=== PATIENT | male | born 1950 | race Caucasian/White ===

== ENCOUNTER 2016-11-30 13:30 | Emergency (ER) | payer MEDICARE, OTHER ==
[~2016-11-30] VITALS: Ht 185.4 cm; Wt 86.0 kg
[2016-11-30 13:33] VITALS: Ht 185.4 cm; Wt 86.0 kg
--- NOTE | 2016-11-30 14:05 | ERD ---
ER Documentation Chief Complaint Date/Time DATE: 11/30/16 TIME: 14:03 Chief Complaint REQUEST PSYCH EVAL. DENIES ANY SI OR HI. HPI This is a 66-year-old male who presents to the emergency room for evaluation of depression. The patient states that he is not homicidal, not suicidal. This patient came to the emergency room because he would like to establish care with a psychiatrist. The patient is denying any drug use at this time, he states that he used to drink and was drinking to supplement his depression and states that his last drink was over 2 weeks ago. ROS All systems reviewed and are negative except as per history of present illness. Allergies Allergies: Coded Allergies: No Known Allergy (Unverified , 11/30/16) Physical Exam Vitals Vital Signs Date Time Temp Pulse Resp B/P Pulse Ox O2 Delivery O2 Flow Rate FiO2 11/30/16 13:33 97.9 60 19 119/79 99 Physical Exam Const: No acute distress Head: Atraumatic Eyes: Normal Conjunctiva ENT: Normal External Ears, Nose and Mouth. Neck: Full range of motion..~ No meningismus. Resp: Clear to auscultation bilaterally Cardio: Regular rate and rhythm, no murmurs Abd: Soft, non tender, non distended. Normal bowel sounds Skin: No petechiae or rashes Back: No midline or flank tenderness Ext: No cyanosis, or edema Neur: Awake and alert Psych: Normal Mood and Affect Procedures/MDM This 66-year-old male presents to the emergency room for a referral for psychiatry. He is not homicidal, not suicidal, denies any homicidal suicidal ideation. Is a pleasant affect and is lonely to the person place and time. I advised him that he can call his insurance company and get a referral through his insurance. The patient verbalized understanding. He was also given referrals for outpatient psychiatric center and alcohol detoxification center. The patient states he is comfortable with the plan of care. I advised him return immediately to the ER if he develops any homicidal or suicidal ideation. The patient is adamantly denying that he is having any at this time and states he will return if he needs further guidance. Departure Diagnosis: Primary Impression: Psychological disorder Additional Impression: Depression Condition: Stable DELIA DORSEY DO November 30, 2016 14:05
[2016-11-30] MEDS ORDERED: GABA400C14 PO (14:13)
[2016-11-30] MEDS ORDERED: FAMO20TA18 PO (14:13)
[2016-11-30] MEDS ORDERED: TREX50 PO (14:13)
[2016-11-30] MEDS ORDERED: PANT40TA4 PO (14:14)
[2016-11-30] MEDS ORDERED: LIT300 PO (14:14)
[2016-11-30] MEDS ORDERED: TERA2CAP3 PO (14:14)
[2016-11-30] MEDS ORDERED: ALBU18HF INHALATION (14:15)
[2016-11-30] MEDS ORDERED: IBUP800T25 PO (14:15)
[2016-11-30] MEDS ORDERED: LATA2.5D2 BOTH EYES (14:15)
[2016-11-30 14:29] VITALS: BP 121/82; PULSE 75; RESP 19; TEMP 97.9
== END 2016-11-30 14:29 | disposition home or self-care (01) ==
LOC: E/R 13:30
DX: F99 Mental disorder, not otherwise specified (principal)
CPT/HCPCS: 99284

== ENCOUNTER 2017-07-04 03:57 | Inpatient (IN) | payer MEDICARE, OTHER ==
[~2017-07-04] VITALS: Ht 182.9 cm; Wt 85.0 kg
[~2017-07-04 03:57] MED LIST: ALBU18HF INHALATION; FAMO20TA18 PO; GABA400C14 PO; IBUP800T25 PO; LATA2.5D2 BOTH EYES; LIT300 PO; PANT40TA4 PO; TERA2CAP3 PO; TREX50 PO
--- NOTE | 2017-07-04 04:16 | ERD ---
ER Documentation Chief Complaint Chief Complaint pt reports BLE pain HPI 67-year-old male brought in by rescue for bilateral lower extremity pain. Patient states "I am cold". Patient does not answer further questions ROS All systems reviewed and are negative except as per history of present illness. Medications Home Meds Reported Medications Albuterol Sulfate* (Ventolin HFA*) 18 Gm Hfa.aer.ad, 2 PUFF INHALATION Q4H, #1 INHALER 11/30/16 Latanoprost (Latanoprost) 2.5 Ml Drops, 1 DROP BOTH EYES QHS, #1 BOTTLE 11/30/16 Ibuprofen* (Ibuprofen*) 800 Mg Tablet, 800 MG PO Q8 Y for PAIN, TAB 11/30/16 [place] Carbonate* ([place]*) 300 Mg Cap, 900 MG PO QHS, CAP 11/30/16 Pantoprazole* (Pantoprazole*) 40 Mg Tablet.dr, 40 MG PO AC BREAKFAST, TAB 11/30/16 Terazosin Hcl* (Terazosin Hcl*) 2 Mg Capsule, 2 MG PO HS, CAP 11/30/16 Famotidine* (Famotidine*) 20 Mg Tablet, 20 MG PO BID, #60 TAB 11/30/16 Naltrexone Hcl (Trexan) 50 Mg Tab, 50 MG PO DAILY, TAB 11/30/16 Gabapentin* (Gabapentin*) 400 Mg Capsule, 400 MG PO TID, #90 CAP 11/30/16 Allergies Allergies: Coded Allergies: No Known Allergy (Unverified , 11/30/16) PMhx/Soc Hx Miscellaneous Medical Probl: Yes (blood clots) Hx Alcohol Use: Yes (socially) Hx Substance Use: No Hx Tobacco Use: Yes Smoking Status: Current every day smoker Physical Exam Vitals Vital Signs Date Time Temp Pulse Resp B/P Pulse Ox O2 Delivery O2 Flow Rate FiO2 07/04/17 04:04 97.1 81 16 128/77 96 Physical Exam Const: [] Head: Atraumatic Eyes: Normal Conjunctiva ENT: Normal External Ears, Nose and Mouth. Neck: Full range of motion..~ No meningismus. Resp: Clear to auscultation bilaterally Cardio: Regular rate and rhythm, no murmurs Abd: Soft, non tender, non distended. Normal bowel sounds Skin: No petechiae or rashes Back: No midline or flank tenderness Ext: No cyanosis, or edema Neur: Awake and alert Psych: Normal Mood and Affect Procedures/MDM Medical decision-making: Patient comes in with myalgias. At this point is clinically stable for outpatient management. Patient will be discharged home. Departure Diagnosis: Primary Impression: Myalgia Condition: Stable ZACHARY KMI Jul 04, 2017 04:16
[2017-07-04] MEDS ORDERED: IBUP-1542 PO (04:17)
[2017-07-04] MEDS ORDERED: VANCOMYCIN 1 GM (PMX) 250 ML IVPB ONE (13:30)
[2017-07-04] MEDS ORDERED: SOD CHLORIDE 0.9% 1,000 ML IV ONE (13:30)
[2017-07-04] MEDS ORDERED: IBUPROFEN 600 MG TAB PO ONE (13:30)
[2017-07-04 13:59] LABS: BASOPHILS % 0.4 % (0.0-2.0); EOSINOPHILS # 0.5 10^3/ul (0.0-0.5); HEMATOCRIT 31.2 % (42.0-52.0); HEMOGLOBIN 9.7 g/dl (14.0-18.0); LYMPHOCYTES # 0.8 10^3/ul (0.8-2.9); LYMPHOCYTES % 11.4 % (15.0-51.0); MEAN CORPUSCULAR HGB CONC 31.1 g/dl (32.0-37.0); MEAN CORPUSCULAR VOLUME 90.2 fl (82.0-101.0); MEAN PLATELET VOLUME 9.1 fl (7.4-10.4); MONOCYTE # 0.9 10^3/ul (0.3-0.9); MONOCYTES % 13.1 % (0.0-11.0); NEUTROPHIL # 4.5 10^3/ul (1.6-7.5); NEUTROPHILS % 66.5 % (39.0-77.0); PLATELET COUNT 320 10^3/UL (140-415); RED BLOOD COUNT 3.46 10^6/ul (4.70-6.10); RED CELL DISTRIBUTION WIDTH 14.6 % (11.5-14.5); WHITE BLOOD COUNT 6.8 10^3/ul (4.8-10.8)
[2017-07-04 14:49] LABS: CALCIUM 8.7 mg/dl (8.4-10.2); CREATININE 0.63 mg/dl (0.61-1.24); POTASSIUM 3.9 mmol/L (3.5-5.1)
[2017-07-04] MEDS ORDERED: DABI150C PO (15:06)
[2017-07-04] MEDS ORDERED: CLOT15CR6 TOP (15:07)
[2017-07-04] MEDS ORDERED: ACETAMINOPHEN 325 MG TAB PO PRN (18:00)
[2017-07-04] MEDS ORDERED: ONDANSETRON 4 MG INJ IV PRN (18:00)
--- NOTE | 2017-07-04 18:20 | QN ---
Documentation Comment I was asked to evaluate this patient by social work after he saw him. States that he was going to be admitted to [facility] before he signed out AMA for his worsening lower extremity cellulitis. States that he has had chills with no fevers but has had increasing leg swelling pain and redness. Spend more and more difficult to walk. He is homeless. On physical exam the patient does have bilateral lower extremity erythema, edema and caloric worse on the left than the right. Has multiple areas of ulceration as well. Bilateral foot pulses are palpable. Heart and lung exam is within normal limits. Patient is almost does not have follow-up. Does need antibiotics. Ordered vancomycin, liter of fluid and blood cultures. Is going to be admitted to the panel Dr. Rodriguez for treatment of worsening bilateral lower extremity cellulitis that is circumferential. No evidence of sepsis. KERI FARFAN DO Jul 04, 2017 18:20
[2017-07-04 22:48] VITALS: TEMP 98.2
[2017-07-05 00:16] VITALS: Ht 182.9 cm; Wt 85.0 kg
[2017-07-05 00:17] VITALS: BP 117/69; PULSE 87; RESP 18
[2017-07-05] MEDS ORDERED: ONDANSETRON 4 MG INJ IV PRN (01:30)
[2017-07-05] MEDS ORDERED: NACL 0.9% 3 ML SYG IV SCH (01:30)
[2017-07-05] MEDS ORDERED: ACETAMINOPHEN 325 MG TAB PO PRN (01:30)
[2017-07-05] MEDS: LORAZEPAM 2 MG INJ IV PRN ×4 (01:58→20:56)
[2017-07-05] MEDS: HYDROCODONE/APAP (5/325) TAB PO PRN ×4 (01:58→20:57)
[2017-07-05] MEDS: VANCOMYCIN 1.25 GM in DEXTROSE 5% 250 ML IVPB SCH ×2 (02:37→15:09)
[2017-07-05 08:00] VITALS: BP 133/67; PULSE 89; RESP 20
[2017-07-05] MEDS: CEFEPIME 1GM/50 ML (PMX) 50 ML IVPB SCH ×2 (09:00→20:56)
[2017-07-05] MEDS ORDERED: VANCOMYCIN IV PER PHARMACY XX SCH (09:00)
--- NOTE | 2017-07-05 09:15 | RADRPT ---
PROCEDURE: Ultrasound of the bilateral lower extremity venous system. CLINICAL INDICATION: Bilateral leg pain and swelling, deep venous thrombosis TECHNIQUE: [place] scale with and without compression, color doppler, spectral doppler of the venous system of the bilateral lower extremities was performed. Venous augmentation maneuvers were utilized . COMPARISON: No prior studies are available for comparison. FINDINGS: Right: Common femoral vein: Age indeterminate thrombus is present Femoral vein: Age indeterminate thrombus is present throughout Popliteal vein: Patent. Calf veins: Not visualized by the pipe straightener. A popliteal cyst measuring 1.4 x 3.0 x 4.7 cm. Left: Common femoral vein: Chronic-appearing thrombus is present. Femoral vein: Chronic-appearing thrombus is present proximally. Popliteal vein: Chronic-appearing thrombus is present. Calf veins: Not visualized by the pipe straightener. No soft tissue abnormalities are identified. IMPRESSION: Bilateral lower extremity deep venous thrombus. RPTAT: AADD .David Martinez MD, MD Date Time Electronically viewed and signed by .David Martinez MD, on 07/05/2017 09:15 .B/
[2017-07-05] MEDS: FAMOTIDINE 20 MG INJ IV SCH ×2 (09:41→20:56)
[2017-07-05] MEDS: DABIGATRAN 150 MG CAP PO SCH ×2 (09:42→21:22)
--- NOTE | 2017-07-05 10:04 | HP ---
Date/Time of Note Date/Time of Note DATE: 07/05/17 TIME: 09:51 Assessment/Plan VTE Prophylaxis VTE Prophylaxis Intervention: other (Pradaxa) Lines/Catheters Urinary Cath still in place: No Assessment/Plan Assessment/Plan 1. Chronic bilateral lower extremity cellulitis -IV antibiotic -ID consult -Wound care consult 2. Bilateral DVT, patient diagnosed 3 weeks ago -will order bilateral Doppler venous study for confirmation. Will then continue his Pradaxa -I believe patient benefits from placement of IVC filter, especially given the fact that he seems to be noncompliant with his medications which puts him at increased risk for PE. Patient is willing for IVC filter placement, patient has been ordered 3. Normocytic anemia -Will check FOBT and iron studies. If the patient is to be placed on a blood thinner, it is important to rule out GI bleed. GI consult has been placed 4. Homelessness -Patient would like SNF placement -housekeeping manager and social work consult will be placed HPI/ROS Admit Date/Time Admit Date/Time Jul 04, 2017 at 17:43 Hx of Present Illness This is a 67-year-old male with history of bilateral DVT, chronic bilateral lower extremity cellulitis who presented to the ER complaining of worsening of his cellulitis as well as pain on both of his legs. He initially went to [facility] but left AMA and he presented here. He said he was diagnosed with bilateral lower extremity DVT 3 weeks ago. His home medications include Pradaxa. He told me that he has been taking Lovenox for his DVT but corrected himself saying that he was only getting Lovenox at the hospital when he was initially diagnosed but now he said he has been taking "his pills" regularly. Patient appears to be homeless. He said he has been living with friends, but he does not want go back to live with them because they are meth users. Patient also complains of generalized weakness. He has also been drinking regularly. He denied tremors. PMH/Family/Social Social History Smoking Status: Unknown if ever smoked Exam/Review of Systems Vital Signs Vitals Vital Signs Date Time Temp Pulse Resp B/P Pulse Ox O2 Delivery O2 Flow Rate FiO2 07/05/17 08:00 98.4 89 20 133/67 98 Room Air Exam Constitutional: alert, oriented, other (Appears disheveled) Head: atraumatic, normocephalic Eyes: EOMI, PERRL Respiratory: clear to auscultation, normal air movement Cardiovascular: nl pulses, regular rate and rhythm Gastrointestinal: non-tender, soft Extremities: other (Bilateral lower extremity cellulitis, edema) Labs Result Diagram: 07/04/17 1325 07/04/17 1325 Medications Medications Current Medications Ondansetron HCl (Zofran Inj) 4 mg Q6H PRN IV NAUSEA AND/OR VOMITING; Start at 01:30 Acetaminophen (Tylenol Tab) 650 mg Q6H PRN PO PAIN LEVEL 1-3 OR FEVER; Start 07/05/17 at 01:30 Morphine Sulfate (morphine) 2 mg Q4H PRN IV SEVERE PAIN LEVEL 7-10; Start at 01:30 Famotidine (Pepcid Iv) 20 mg Q12 IV Last administered on 07/05/17 09:41; Admin Dose 20 MG; Start 07/05/17 at 09:00 Dabigatran 150 mg 150 mg BID PO Last administered on 07/05/17 09:42; Admin Dose 150 MG; Start 07/05/17 at 09:00 Multivitamins/ Thiamine HCl/ Folic Acid/Sodium Chloride (Mvi Adult/ Vitamin B1/ Folic Acid/NS) 1,011.2 ml @ 125 mls/ hr DAILY@09 IVPB ; Start 07/08/17 at 09: 00 Lorazepam (Ativan) 1 mg Q3H PRN IV anxiety; Start 07/05/17 at 01:30 Lorazepam 2 mg 2 mg Q1H PRN IV withdrawal Last administered on 07/05/17 09:42 ; Admin Dose 2 MG; Start 07/05/17 at 01:30 Cefepime HCl (Maxipime 1gm/50 ml (Pmx)) 50 ml @ 100 mls/hr Q12 IVPB ; Start at 09:00 Acetaminophen/ Hydrocodone Bitart 1 tab 1 tab Q4H PRN PO pain Last administered on 07/05/17 09:42; Admin Dose 1 TAB; Start 07/05/17 at 01:30 Vancomycin HCl/ Dextrose (Vancocin/D5W) 250 ml @ 83.333 mls/ hr Q12H IVPB Last administered on 07/05/17 02:37; Admin Dose 83.333 MLS/HR; Start at 02:00 Miscellaneous Information (*Rx Drug Level Order Reminder*) VANCOMYCIN TROUGH ON 06/17... ONCE ONCE XX ; Start 07/06/17 at 13:00; Stop 07/06/17 at 13:01 ZACHARY YEE MD Jul 05, 2017 10:03
[2017-07-05] MEDS: morphine 2 MG INJ IV PRN ×2 (10:52→23:33)
[2017-07-05 11:48] LABS: ABNORMAL IP MESSAGE 1; BASOPHILS % 0.6 % (0.0-2.0); EOSINOPHILS # 0.7 10^3/ul (0.0-0.5); EOSINOPHILS % 10.3 % (0.0-7.0); HEMATOCRIT 30.7 % (42.0-52.0); HEMOGLOBIN 9.6 g/dl (14.0-18.0); LYMPHOCYTES # 0.6 10^3/ul (0.8-2.9); LYMPHOCYTES % 8.2 % (15.0-51.0); MEAN CORPUSCULAR HEMOGLOBIN 28.9 pg (29.0-33.0); MEAN CORPUSCULAR HGB CONC 31.3 g/dl (32.0-37.0); MEAN CORPUSCULAR VOLUME 92.5 fl (82.0-101.0); MEAN PLATELET VOLUME 8.9 fl (7.4-10.4); MONOCYTE # 0.9 10^3/ul (0.3-0.9); MONOCYTES % 12.7 % (0.0-11.0); NEUTROPHIL # 4.8 10^3/ul (1.6-7.5); NEUTROPHILS % 67.8 % (39.0-77.0); PLATELET COUNT 291 10^3/UL (140-415); POSITIVE DIFF @See below; RED BLOOD COUNT 3.32 10^6/ul (4.70-6.10); RED CELL DISTRIBUTION WIDTH 14.6 % (11.5-14.5); WHITE BLOOD COUNT 7.1 10^3/ul (4.8-10.8)
[2017-07-05 12:16] LABS: ALBUMIN 2.7 g/dl (3.3-4.9); ALBUMIN/GLOBULIN RATIO 0.81; BILIRUBIN,INDIRECT 0.1 mg/dl (0-1.1); BILIRUBIN,TOTAL 0.1 mg/dl (0.2-1.3); CALCIUM 8.4 mg/dl (8.4-10.2); CREATININE 0.63 mg/dl (0.61-1.24); POTASSIUM 4.3 mmol/L (3.5-5.1)
[2017-07-05 12:20] LABS: INR 1.07; PT RATIO 1.1
[2017-07-05 12:22] LABS: PARTIAL THROMBOPLASTIN TIME 29.4 Sec (25.0-35.0)
[2017-07-05] MEDS ORDERED: MIDAZOLAM 1 MG/ML 2 ML INJ ONE (13:18)
[2017-07-05] MEDS ORDERED: LIDOCAINE 1% (MDV) 20 ML INJ ONE (13:18)
[2017-07-05] MEDS ORDERED: morphine 10 MG INJ ONE (13:18)
[2017-07-05] MEDS ORDERED: IODIXANOL LOCM 100 ML BTL ONE (13:18)
--- NOTE | 2017-07-05 15:15 | PN ---
Date/Time of Note Date/Time of Note DATE: 07/05/17 TIME: 15:06 Assessment/Plan VTE Prophylaxis VTE Prophylaxis Intervention: other (pradaxa) Lines/Catheters Urinary Cath still in place: No Assessment/Plan Chief Complaint/Hosp Course 1. Bilateral lower extremity cellulitis Status: Chronic Remarks: Needs proper wound care. -IV antibiotic -Blood cultures, ID consult -Elevate both legs, Wound care consult 2. Bilateral DVT Status:Acute. Remarks: Stable -Status post IVC filter -On anticoagulation with Pradaxa-Vascular consult requested 3. Anemia of chronic illness. Status:Chronic. Remarks: Stable -Monitor.No acute bleed to address this time. 4. Homelessness Status:Chronic. Remarks: Patient now requests assistance. His wound care need may qualify him for SNF-But will be challenging with non-compliance issues and homelessness status. -human resources training manager and health and social care teacher to address this issue. 5.Alcohol abuse -Cessation advised. Patient was seen in collaboration with . Problems: Subjective 24 Hr Interval Summary Free Text/Dictation No acute distress. Exam/Review of Systems Vital Signs Vitals Vital Signs Date Time Temp Pulse Resp B/P Pulse Ox O2 Delivery O2 Flow Rate FiO2 07/05/17 08:00 98.4 89 20 133/67 98 Room Air Exam General: Disheveled male, not in any acute distress . HEENT: Normocephalic, Atraumatic, No laceration or hematoma; Eyes: PEERL, Conjunctiva clear, Anicteric sclera Neck: Supple without any lymphadenopathy, nontender, no JVD, no carotid bruits, trachea midline, no thyromegaly Cardiac: S1, S2 auscultated, regular rhythm and rate, no mumurs or gallop Pulmonary: Normal respiratory effort. Chest clear to auscultation bilaterally, no adventitious breath sounds GI: Abdomen normal to inspection. Soft, non- distended, no masses, no rebound tenderness or guarding. Bowel sounds active on all four quadrants Genitourinary: Deferred Extremities: Chronic lymphedema/hyperpigmentation/venosus stasis changes to dann.LEs. No cyanosis, clubbing, or edema. Pulses [2+] bilaterally. Full ROM on all four extremities. No focal weakness appreciated. Neurologic: Alert to person, place, time, and situation. Anxious. Skin: b/l LE chronic venous stasis changes/wounds/hyperpigmentation. Results Result Diagram: 07/05/17 1125 07/05/17 1125 Results 24 hrs Laboratory Tests Test 07/05/17 11:25 White Blood Count 7.1 Red Blood Count 3.32 L Hemoglobin 9.6 L Hematocrit 30.7 L Mean Corpuscular Volume 92.5 Mean Corpuscular Hemoglobin 28.9 L Mean Corpuscular Hemoglobin Concent 31.3 L Red Cell Distribution Width 14.6 H Platelet Count 291 Mean Platelet Volume 8.9 Neutrophils % 67.8 Lymphocytes % 8.2 L Monocytes % 12.7 H Eosinophils % 10.3 H Basophils % 0.6 Nucleated Red Blood Cells % 0.0 Neutrophils # 4.8 Lymphocytes # 0.6 L Monocytes # 0.9 Eosinophils # 0.7 H Basophils # 0.0 Nucleated Red Blood Cells # 0.0 Prothrombin Time 14.0 Prothrombin Time Ratio 1.1 INR International Normalized Ratio 1.07 Activated Partial Thromboplast Time 29.4 Sodium Level 143 Potassium Level 4.3 Chloride Level 109 Carbon Dioxide Level 28 Anion Gap 10 Blood Urea Nitrogen 13 Creatinine 0.63 Glucose Level 100 Calcium Level 8.4 Ferritin 105.0 Total Bilirubin 0.1 L Direct Bilirubin 0.00 Indirect Bilirubin 0.1 Aspartate Amino Transf (AST/SGOT) 18 Alanine Aminotransferase (ALT/SGPT) 27 Alkaline Phosphatase 50 Total Protein 6.0 L Albumin 2.7 L Globulin 3.30 H Albumin/Globulin Ratio 0.81 Medications Medications Current Medications Ondansetron HCl (Zofran Inj) 4 mg Q6H PRN IV NAUSEA AND/OR VOMITING; Start at 01:30 Acetaminophen (Tylenol Tab) 650 mg Q6H PRN PO PAIN LEVEL 1-3 OR FEVER; Start 07/05/17 at 01:30 Morphine Sulfate (morphine) 2 mg Q4H PRN IV SEVERE PAIN LEVEL 7-10 Last administered on 07/05/17 10:52; Admin Dose 2 MG; Start 07/05/17 at 01:30 Famotidine (Pepcid Iv) 20 mg Q12 IV Last administered on 07/05/17 09:41; Admin Dose 20 MG; Start 07/05/17 at 09:00 Dabigatran 150 mg 150 mg BID PO Last administered on 07/05/17 09:42; Admin Dose 150 MG; Start 07/05/17 at 09:00 Multivitamins/ Thiamine HCl/ Folic Acid/Sodium Chloride (Mvi Adult/ Vitamin B1/ Folic Acid/NS) 1,011.2 ml @ 125 mls/ hr DAILY@09 IVPB ; Start 07/08/17 at 09: 00 Lorazepam (Ativan) 1 mg Q3H PRN IV anxiety; Start 07/05/17 at 01:30 Lorazepam 2 mg 2 mg Q1H PRN IV withdrawal Last administered on 07/05/17 09:42 ; Admin Dose 2 MG; Start 07/05/17 at 01:30 Cefepime HCl (Maxipime 1gm/50 ml (Pmx)) 50 ml @ 100 mls/hr Q12 IVPB Last administered on 07/05/17 09:00; Admin Dose 100 MLS/HR; Start 07/05/17 at 09: 00 Acetaminophen/ Hydrocodone Bitart 1 tab 1 tab Q4H PRN PO pain Last administered on 07/05/17 09:42; Admin Dose 1 TAB; Start 07/05/17 at 01:30 Vancomycin HCl/ Dextrose (Vancocin/D5W) 250 ml @ 83.333 mls/ hr Q12H IVPB Last administered on 07/05/17 02:37; Admin Dose 83.333 MLS/HR; Start at 02:00 Miscellaneous Information (*Rx Drug Level Order Reminder*) VANCOMYCIN TROUGH ON 06/17... ONCE ONCE XX ; Start 07/06/17 at 13:00; Stop 07/06/17 at 13:01 Betamethasone/ Clotrimazole (Lotrisone Cr) 1 applic BID TOP ; Start 07/05/17 at 21:00; Status UNV Ibuprofen (Motrin) 600 mg Q6 PO ; Start 07/05/17 at 18:00; Status UNV APPLE CHEUNG NP Jul 05, 2017 15:15 APPLE CHEUNG NP Jul 05, 2017 15:15
--- NOTE | 2017-07-05 17:21 | RADRPT ---
PROCEDURE: INFERIOR VENACAVOGRAM CLINICAL INDICATION: Bilateral lower extremity deep venous thrombosis. TECHNIQUE: The procedure, risks, benefits, complications and alternatives were explained to the patient. Risks including bleeding and infection were explained. In addition, risks regarding the inferior vena cava filter including filter migration, inferior vena cava the perforation, and caval thrombosis were ex plained. The patient understood and was willing to proceed. Consent was obtained. A procedural pause was performed. The patient's name, date of , and procedure to be performed were verified. The right internal jugular vein was interrogated with ultrasound. It demonstrates normal compressibi lity without evidence for venous thrombosis. The right neck and chest region was prepped and draped. One percent lidocaine was used as local anesthesia. A 21 gauge single wall puncture needle was inse rted into the right internal jugular vein without difficulty. A 0.018 inch guidewire was then advanc ed through the needle into the right internal jugular vein, and the superior vena cava with fluorosc opic guidance. A 5 Serbian sheath was then exchanged for the needle. The original guidewire was remov ed and a 0.035 inch wire was then advanced into the right internal jugular vein, then the superior v moises cava, and the right atrium, and the inferior vena cava with fluoroscopic guidance. At this point , it was noted under fluoroscopy that there was an inferior vena cava filter present in the upper ab domen. The guidewire could not be advanced past the inferior vena cava filter indicating there may be caval thrombosis. Therefore, due to this finding and the presence of bilateral deep venous thromb osis, it was decided to perform an inferior venacavagram. A 6-Serbian dilator from the inferior vena cava filter set was advanced over the guide wire is such that the tip was at the level of the upper inferior vena cava. An inferior venacavogram was performed through the dilator. Multiple digital shefali ges were obtained. The dilator was then removed and pressure was held for approximately 10 minutes with good hemostasis . The patient tolerated the procedure well. COMPARISON: Bilateral lower extremity venous Doppler dated 07/05/2017. FINDINGS: The inferior vena cava filter is noted to be tilted with the superior tip at the level of the right renal vein. Contrast injection demonstrates thrombosis of the inferior vena cava inferior to the inferior vena c madi filter. The bilateral renal veins are patent. The inferior vena cava superior to the renal veins is widely p atent. Fluoroscopy time is 0.3 minutes and 37 images were obtained. IMPRESSION: 1. An inferior vena cava filter is present in the patient prior to the procedure been performed. 2. The existing IVC filter is tilted with the superior tip towards the right renal vein. 3. Thrombosis of the inferior vena cava inferior to the existing IVC filter. 4. There is no thrombus superior to the existing inferior vena cava filter. Therefore a new inferio r vena cava filter was not placed. RPTAT: QQ .Ajit Cullen MD, MD Date Time Electronically viewed and signed by .Ajit Cullen MD, on 07/05/2017 17:21 .R/
[2017-07-05] MEDS: IBUPROFEN 600 MG TAB PO SCH ×2 (18:57→23:42)
[2017-07-05 19:30] VITALS: BP 110/68; PULSE 85; RESP 18
[2017-07-05] MEDS: BETAMETHASONE/CLOTRIMAZOLE 15 GM CR TOP SCH (20:56)
[2017-07-05] MEDS: MULTIVITAMINS 10 ML, THIAMINE 100 MG, FOLIC ACID 1 MG in SOD CHLORIDE 0.9% 1,000 ML IVPB SCH (21:42)
--- NOTE | 2017-07-05 23:27 | CONS ---
DATE OF ADMISSION: 07/05/2017 DATE OF CONSULTATION: 07/05/2017 INFECTIOUS DISEASE CONSULTATION REASON FOR CONSULTATION: Antibiotic management. HISTORY OF PRESENT ILLNESS: Romario Verdugo is a 67-year-old male who appears to be homeless, who com es in with bilateral DVTs and is being seen for antibiotic management. His problems include: 1. History of bilateral DVTs. 2. Chronic bilateral lower extremity cellulitis. He presented to the emergency room with worsening cellulitis of both legs as well as pain. He initi ally went to [facility], but left AMA. He was diagnosed with lower extremity deep venous thr ombosis 3 weeks ago and was placed on Pradaxa. He then said that he was taking Lovenox for his DVT, but he was only getting Lovenox in the Hospital when he was initially diagnosed. On admission, his white count was 6.8, H and H 9.7 and 31.2, platelet count 320,000. BUN and creatinine 15/0.63. Th e patient was started on vancomycin and cefepime and has just had an IVC filter placed. A vascular consultation was also requested. His white count today is 7.1. PAST MEDICAL AND SURGICAL HISTORY: None stated. FAMILY HISTORY: Noncontributory. SOCIAL HISTORY: Noncontributory. ALLERGIES: PENICILLIN, SULFA, FOODS. MEDICATIONS: Per chart. REVIEW OF SYSTEMS: As per HPI. PHYSICAL EXAMINATION: GENERAL: The patient is a disheveled male who is alert, responsive, in no acute distress. VITAL SIGNS: Stable. He is afebrile. SKIN: Without generalized rash. HEENT: Within normal limits. NECK: Supple. LYMPH NODES: None palpable. CHEST: Decreased breath sounds at the bases. HEART: Without murmur or gallop. ABDOMEN: Soft, nontender, without organosplenomegaly or masses. EXTREMITIES: Patient is an extremely swollen and red. He has bilateral lower extremity deep vein t hrombosis on his x-rays, but as far as his physical examination he is markedly erythematous with dann ateral lower extremity cellulitis and edema. RECTAL AND GENITAL: Deferred. NEUROLOGICAL: No focal neurological abnormalities. IMPRESSION AND PLAN: The patient is currently on multivitamin, has history of alcohol abuse. He is on vancomycin and cefepime. I will dictate my findings to the hospitalist. Dictated By: LONI CORTES MD, JD/CRYS Conf#: [id number] [employer]#: [id number]
[2017-07-06] MEDS: HYDROCODONE/APAP (5/325) TAB PO PRN ×4 (01:38→18:58)
[2017-07-06] MEDS: VANCOMYCIN 1.25 GM in DEXTROSE 5% 250 ML IVPB SCH ×2 (01:38→14:49)
[2017-07-06] MEDS: LORAZEPAM 2 MG INJ IV PRN ×3 (01:38→22:32)
[2017-07-06 02:30] VITALS: BP 122/64; PULSE 81; RESP 18
[2017-07-06] MEDS: IBUPROFEN 600 MG TAB PO SCH ×3 (06:00→19:00)
[2017-07-06 08:00] VITALS: BP 129/87; PULSE 86; RESP 20
[2017-07-06] MEDS: FAMOTIDINE 20 MG INJ IV SCH ×2 (09:13→21:48)
[2017-07-06] MEDS: DABIGATRAN 150 MG CAP PO SCH ×2 (09:13→21:48)
[2017-07-06] MEDS: CEFEPIME 1GM/50 ML (PMX) 50 ML IVPB SCH ×2 (09:14→21:48)
[2017-07-06] MEDS: MULTIVITAMINS 10 ML, THIAMINE 100 MG, FOLIC ACID 1 MG in SOD CHLORIDE 0.9% 1,000 ML IVPB SCH (09:15)
[2017-07-06] MEDS: BETAMETHASONE/CLOTRIMAZOLE 15 GM CR TOP SCH (10:11)
--- NOTE | 2017-07-06 12:15 | PN ---
Date/Time of Note Date/Time of Note DATE: 07/06/17 TIME: 12:12 Assessment/Plan VTE Prophylaxis VTE Prophylaxis Intervention: other (Pradaxa) Lines/Catheters Urinary Cath still in place: No Assessment/Plan Chief Complaint/Hosp Course 1. Bilateral lower extremity cellulitis Status: Chronic. Remarks: Needs proper wound care. -ID eval appreciated. Continue IV antibiotic and wound care -F/u Blood cultures -Elevate both legs 2. Bilateral DVT Status:Acute. Remarks:Stable -Status post IVC filter -On anticoagulation with Pradaxa- Consulted vascular remotely () and no further intervention indicated. Advised to continue Pradax 3. Anemia of chronic illness. Status:Chronic. Remarks:Stable -Monitor.No acute bleed to address this time. 4. Homelessness Status:Chronic. Remarks: Needs to address here as patient now requests assistance and the need for wound care may qualify him for a SNF- which will be challenging based on his non-compliance and homelessness. -Defer this issue to our manager practice and director social service 5.Alcohol abuse -Cessation advised. Patient was seen in collaboration with . Problems: Subjective 24 Hr Interval Summary Free Text/Dictation sitting up in chair.NAD Exam/Review of Systems Vital Signs Vitals Vital Signs Date Time Temp Pulse Resp B/P Pulse Ox O2 Delivery O2 Flow Rate FiO2 07/06/17 08:00 86 20 129/87 97 Room Air 07/05/17 08:00 98.4 Exam General: Well developed male, not in any acute distress . HEENT: Normocephalic, Atraumatic, No laceration or hematoma; Eyes: PEERL, Conjunctiva clear, Anicteric sclera Neck: Supple without any lymphadenopathy, nontender, no JVD, no carotid bruits, trachea midline, no thyromegaly Cardiac: S1, S2 auscultated, regular rhythm and rate, no mumurs or gallop Pulmonary: Normal respiratory effort. Chest clear to auscultation bilaterally, no adventitious breath sounds GI: Abdomen normal to inspection. Soft, non- distended, no masses, no rebound tenderness or guarding. Bowel sounds active on all four quadrants Genitourinary: Deferred Extremities: Chronic lymphedema/hyperpigmentation/venosus stasis changes to dann.LEs. No cyanosis, clubbing, or edema. Pulses [2+] bilaterally. Full ROM on all four extremities. No focal weakness appreciated. Neurologic: Alert to person, place, time, and situation. Anxious. Skin: b/l LE chronic venous stasis changes/wounds/hyperpigmentation. Results Result Diagram: 07/05/17 1125 07/05/17 1125 Medications Medications Current Medications Ondansetron HCl (Zofran Inj) 4 mg Q6H PRN IV NAUSEA AND/OR VOMITING; Start at 01:30 Acetaminophen (Tylenol Tab) 650 mg Q6H PRN PO PAIN LEVEL 1-3 OR FEVER; Start 07/05/17 at 01:30 Morphine Sulfate (morphine) 2 mg Q4H PRN IV SEVERE PAIN LEVEL 7-10 Last administered on 07/05/17 23:33; Admin Dose 2 MG; Start 07/05/17 at 01:30 Famotidine (Pepcid Iv) 20 mg Q12 IV Last administered on 07/06/17 09:13; Admin Dose 20 MG; Start 07/05/17 at 09:00 Dabigatran (PRADaxa) 150 mg BID PO Last administered on 07/06/17 09:13; Admin Dose 150 MG; Start 07/05/17 at 09:00 Lorazepam (Ativan) 1 mg Q3H PRN IV anxiety; Start 07/05/17 at 01:30 Lorazepam 2 mg 2 mg Q1H PRN IV withdrawal Last administered on 07/06/17 10:18 ; Admin Dose 2 MG; Start 07/05/17 at 01:30 Cefepime HCl (Maxipime 1gm/50 ml (Pmx)) 50 ml @ 100 mls/hr Q12 IVPB Last administered on 07/06/17 09:14; Admin Dose 100 MLS/HR; Start 07/05/17 at 09: 00 Acetaminophen/ Hydrocodone Bitart 1 tab 1 tab Q4H PRN PO pain Last administered on 07/06/17 10:12; Admin Dose 1 TAB; Start 07/05/17 at 01:30 Vancomycin HCl/ Dextrose (Vancocin/D5W) 250 ml @ 83.333 mls/ hr Q12H IVPB Last administered on 07/06/17 01:38; Admin Dose 83.333 MLS/HR; Start at 02:00 Miscellaneous Information (*Rx Drug Level Order Reminder*) VANCOMYCIN TROUGH ON 06/17... ONCE ONCE XX ; Start 07/06/17 at 13:00; Stop 07/06/17 at 13:01 Betamethasone/ Clotrimazole (Lotrisone Cr) 1 applic BID TOP Last administered on 07/06/17 10:11; Admin Dose 1 APPLIC; Start 07/05/17 at 21:00 Ibuprofen (Motrin) 600 mg Q6 PO Last administered on 07/05/17 23:42; Admin Dose 600 MG; Start 07/05/17 at 18:00 Influenza Virus Vaccine 0.5 ml 0.5 ml ONCE ONCE IM* ; Start 07/07/17 at 09:00; Stop 07/07/17 at 09:01 Multivitamins/ Thiamine HCl/ Folic Acid/Sodium Chloride (Mvi Adult/ Vitamin B1/ Folic Acid/NS) 1,011.2 ml @ 125 mls/ hr DAILY@09 IVPB Last administered on 09:15; Admin Dose 125 MLS/HR; Start 07/05/17 at 21:00 APPLE CHEUNG NP Jul 06, 2017 12:15
[2017-07-06 15:55] LABS: BASOPHILS % 0.6 % (0.0-2.0); EOSINOPHILS # 0.8 10^3/ul (0.0-0.5); EOSINOPHILS % 10.9 % (0.0-7.0); HEMATOCRIT 34.2 % (42.0-52.0); HEMOGLOBIN 10.7 g/dl (14.0-18.0); LYMPHOCYTES # 0.8 10^3/ul (0.8-2.9); LYMPHOCYTES % 11.6 % (15.0-51.0); MEAN CORPUSCULAR HEMOGLOBIN 28.7 pg (29.0-33.0); MEAN CORPUSCULAR HGB CONC 31.3 g/dl (32.0-37.0); MEAN CORPUSCULAR VOLUME 91.7 fl (82.0-101.0); MEAN PLATELET VOLUME 9.2 fl (7.4-10.4); MONOCYTE # 0.8 10^3/ul (0.3-0.9); MONOCYTES % 10.7 % (0.0-11.0); NEUTROPHIL # 4.7 10^3/ul (1.6-7.5); NEUTROPHILS % 65.9 % (39.0-77.0); PLATELET COUNT 359 10^3/UL (140-415); RED BLOOD COUNT 3.73 10^6/ul (4.70-6.10); RED CELL DISTRIBUTION WIDTH 14.6 % (11.5-14.5); WHITE BLOOD COUNT 7.1 10^3/ul (4.8-10.8)
[2017-07-06 16:16] LABS: CALCIUM 8.6 mg/dl (8.4-10.2); CREATININE 0.72 mg/dl (0.61-1.24); MAGNESIUM 1.9 mg/dl (1.7-2.5); PHOSPHORUS 4.3 mg/dl (2.5-4.9); POTASSIUM 4.2 mmol/L (3.5-5.1)
[2017-07-06 18:55] VITALS: BP 133/71; PULSE 65; RESP 18
[2017-07-06] MEDS: morphine 2 MG INJ IV PRN ×2 (19:16→23:52)
[2017-07-06 21:10] VITALS: BP 99/58; RESP 20
--- NOTE | 2017-07-06 22:18 | PN ---
DATE: 07/06/2017 INFECTIOUS DISEASE PROGRESS NOTE SUBJECTIVE: No acute changes overnight. The patient is awake, looks comfortable, no fevers. LABORATORY DATA: WBC 7.1, H and H 10.7 and 34.2, platelets 359, no shift, no bands. BUN 16, creati nine 0.72. MICROBIOLOGY: Blood cultures negative. DIAGNOSTICS: Ultrasound of lower extremities revealed bilateral DVT. ANTIMICROBIALS: The patient is on: 1. Cefepime. 2. Vancomycin. PHYSICAL EXAMINATION: GENERAL: Chronically ill-appearing, elderly man who is in no distress. HEENT: Head atraumatic, normocephalic. Sclerae anicteric. Buccal mucosa dry. NECK: Supple. CHEST: Rise symmetrical. Breath sounds clear. HEART: S1, S2. ABDOMEN: Soft, bowel tones present. EXTREMITIES: With bilateral lower extremity edema, erythema, left more than right. ASSESSMENT: 1. [id number] bilateral lower extremity cellulitis. 2. Bilateral lower extremity DVT. 3. Anemia. 4. Homelessness. PLAN: The patient remains stable. Continue present care. Add topical Silvadene to lower extremiti es. Keep lower extremities elevated. Dictated By: BD BASSETT PLANNER INTERN for LONI CORTES MD NI/NTS Conf#: [id number] DID#: [id number] CC: AMAURI MCNEAL MD;*EndCC*
[2017-07-06] MEDS: SILVER SULFADIAZINE 1% 25 GM CR TOP SCH (23:53)
[2017-07-07 02:00] VITALS: BP 105/55; RESP 20
[2017-07-07] MEDS: BETAMETHASONE/CLOTRIMAZOLE 15 GM CR TOP SCH ×4 (02:25→22:11)
[2017-07-07] MEDS: IBUPROFEN 600 MG TAB PO SCH ×4 (02:26→17:16)
[2017-07-07] MEDS: VANCOMYCIN 1.25 GM in DEXTROSE 5% 250 ML IVPB SCH ×2 (02:30→14:11)
[2017-07-07] MEDS: LORAZEPAM 2 MG INJ IV PRN (02:56)
[2017-07-07 07:45] VITALS: BP 121/81; RESP 18
[2017-07-07] MEDS: SILVER SULFADIAZINE 1% 25 GM CR TOP SCH ×3 (09:00→22:12)
[2017-07-07] MEDS: DABIGATRAN 150 MG CAP PO SCH ×3 (09:00→22:02)
[2017-07-07] MEDS ORDERED: INFLUENZA VIRUS VACCINE 0.5 ML (DISPENSING) IM* ONE (09:00)
[2017-07-07] MEDS: FAMOTIDINE 20 MG INJ IV SCH ×2 (09:50→22:02)
[2017-07-07] MEDS: MULTIVITAMINS 10 ML, THIAMINE 100 MG, FOLIC ACID 1 MG in SOD CHLORIDE 0.9% 1,000 ML IVPB SCH (09:51)
[2017-07-07] MEDS: CEFEPIME 1GM/50 ML (PMX) 50 ML IVPB SCH ×2 (09:51→22:02)
[2017-07-07] MEDS: HYDROCODONE/APAP (5/325) TAB PO PRN (10:37)
--- NOTE | 2017-07-07 11:11 | PN ---
Date/Time of Note Date/Time of Note DATE: 07/07/17 TIME: 11:02 Assessment/Plan VTE Prophylaxis VTE Prophylaxis Intervention: other (Pradaxa) Lines/Catheters IV [facility] Type (from [facility]): Saline Lock Urinary Cath still in place: No Assessment/Plan Chief Complaint/Hosp Course 1. Bilateral lower extremity cellulitis Status: Chronic. Remarks: This is chronic in nature and appears at baseline. No open wounds that needs to address. -Abx and wound care per our ID colleagues -F/u Blood cultures -Elevate both legs 2. Bilateral DVT Status:Acute. Remarks: Stable -Status post IVC filter -On anticoagulation with Pradaxa- Consulted vascular remotely () and no further intervention indicated. Advised to continue Pradaxa 3. Anemia of chronic illness. Status:Chronic.Remarks: Stable -Monitor.No acute bleed to address this time. 4. Homelessness Status:Chronic. Remarks: Needs to address here as patient now requests assistance and the need for wound care may qualify him for a SNF- which will be challenging based on his non-compliance and homelessness. -Defer this issue to our online advertising manager and health care social worker 5.Alcohol abuse -Cessation advised. Patient was seen in collaboration with . Problems: Subjective 24 Hr Interval Summary Free Text/Dictation No acute distress. Exam/Review of Systems Vital Signs Vitals Vital Signs Date Time Temp Pulse Resp B/P Pulse Ox O2 Delivery O2 Flow Rate FiO2 07/07/17 07:45 98.6 89 18 121/81 93 07/06/17 18:55 Room Air Intake and Output 07/06/17 07/06/17 07/07/17 15:00 23:00 07:00 Intake Total 50 ml 1330 ml Output Total 500 ml Balance 50 ml 830 ml Exam General: Well developed male, not in any acute distress . HEENT: Normocephalic, Atraumatic, No laceration or hematoma; Eyes: PEERL, Conjunctiva clear, Anicteric sclera Neck: Supple without any lymphadenopathy, nontender, no JVD, no carotid bruits, trachea midline, no thyromegaly Cardiac: S1, S2 auscultated, regular rhythm and rate, no mumurs or gallop Pulmonary: Normal respiratory effort. Chest clear to auscultation bilaterally, no adventitious breath sounds GI: Abdomen normal to inspection. Soft, non- distended, no masses, no rebound tenderness or guarding. Bowel sounds active on all four quadrants Genitourinary: Deferred Extremities: Chronic lymphedema/hyperpigmentation/venosus stasis changes to dann.LEs. No cyanosis, clubbing, or edema. Pulses [2+] bilaterally. Full ROM on all four extremities. No focal weakness appreciated. Neurologic: Alert to person, place, time, and situation. Anxious. Skin: b/l LE chronic venous stasis changes/wounds/hyperpigmentation. Results Result Diagram: 07/06/17 1425 07/06/17 1425 Results 24 hrs Laboratory Tests Test 07/06/17 14:25 White Blood Count 7.1 Red Blood Count 3.73 L Hemoglobin 10.7 L Hematocrit 34.2 L Mean Corpuscular Volume 91.7 Mean Corpuscular Hemoglobin 28.7 L Mean Corpuscular Hemoglobin Concent 31.3 L Red Cell Distribution Width 14.6 H Platelet Count 359 # Mean Platelet Volume 9.2 Neutrophils % 65.9 Lymphocytes % 11.6 L Monocytes % 10.7 Eosinophils % 10.9 H Basophils % 0.6 Nucleated Red Blood Cells % 0.0 Neutrophils # 4.7 Lymphocytes # 0.8 Monocytes # 0.8 Eosinophils # 0.8 H Basophils # 0.0 Nucleated Red Blood Cells # 0.0 Sodium Level 140 Potassium Level 4.2 Chloride Level 105 Carbon Dioxide Level 25 Anion Gap 14 Blood Urea Nitrogen 16 Creatinine 0.72 Glucose Level 82 Calcium Level 8.6 Phosphorus Level 4.3 Magnesium Level 1.9 Vancomycin Level Trough 11.7 Medications Medications Current Medications Ondansetron HCl (Zofran Inj) 4 mg Q6H PRN IV NAUSEA AND/OR VOMITING; Start at 01:30 Acetaminophen (Tylenol Tab) 650 mg Q6H PRN PO PAIN LEVEL 1-3 OR FEVER; Start 07/05/17 at 01:30 Morphine Sulfate (morphine) 2 mg Q4H PRN IV SEVERE PAIN LEVEL 7-10 Last administered on 07/06/17 23:52; Admin Dose 2 MG; Start 07/05/17 at 01:30 Famotidine (Pepcid Iv) 20 mg Q12 IV Last administered on 07/07/17 09:50; Admin Dose 20 MG; Start 07/05/17 at 09:00 Dabigatran (PRADaxa) 150 mg BID PO Last administered on 07/07/17 10:37; Admin Dose 150 MG; Start 07/05/17 at 09:00 Lorazepam (Ativan) 1 mg Q3H PRN IV anxiety Last administered on 07/07/17 02: 56; Admin Dose 1 MG; Start 07/05/17 at 01:30 Lorazepam 2 mg 2 mg Q1H PRN IV withdrawal Last administered on 07/06/17 10:18 ; Admin Dose 2 MG; Start 07/05/17 at 01:30 Cefepime HCl (Maxipime 1gm/50 ml (Pmx)) 50 ml @ 100 mls/hr Q12 IVPB Last administered on 07/07/17 09:51; Admin Dose 100 MLS/HR; Start 07/05/17 at 09: 00 Acetaminophen/ Hydrocodone Bitart 1 tab 1 tab Q4H PRN PO pain Last administered on 07/07/17 10:37; Admin Dose 1 TAB; Start 07/05/17 at 01:30 Vancomycin HCl/ Dextrose (Vancocin/D5W) 250 ml @ 83.333 mls/ hr Q12H IVPB Last administered on 07/07/17 02:30; Admin Dose 83.333 MLS/HR; Start at 02:00; Stop 07/08/17 at 01:59 Betamethasone/ Clotrimazole (Lotrisone Cr) 1 applic BID TOP Last administered on 07/07/17 02:25; Admin Dose 1 APPLIC; Start 07/05/17 at 21:00 Ibuprofen 600 mg 600 mg Q6 PO Last administered on 07/07/17 02:26; Admin Dose 600 MG; Start 07/05/17 at 18:00 Multivitamins/ Thiamine HCl/ Folic Acid/Sodium Chloride (Mvi Adult/ Vitamin B1/ Folic Acid/NS) 1,011.2 ml @ 125 mls/ hr DAILY@09 IVPB Last administered on 09:51; Admin Dose 125 MLS/HR; Start 07/05/17 at 21:00 Silver Sulfadiazine (Thermazene 1% 25 Gm) 1 applic BID TOP Last administered on 07/06/17 23:53; Admin Dose 1 APPLIC; Start 12/21/17 at 22:00 Miscellaneous Information Patients own medicat... BID@,16 XX ; Start at 10:00 Vancomycin HCl/ Sodium Chloride (Vancocin/Sodium Chloride) 250 ml @ 83.333 mls / hr Q12H IVPB ; Start 07/08/17 at 02:00 APPLE CHEUNG NP Jul 07, 2017 11:11
[2017-07-07] MEDS: morphine 2 MG INJ IV PRN ×3 (14:13→22:57)
--- NOTE | 2017-07-07 14:56 | CONS ---
Date/Time of Note Date/Time of Note DATE: 07/07/17 TIME: 14:55 Assessment/Plan Assessment/Plan Chief Complaint/Hosp Course SUBJECTIVE: No acute changes overnight. The patient is awake, looks comfortable, no fevers. MICROBIOLOGY: Blood cultures negative. DIAGNOSTICS: Ultrasound of lower extremities revealed bilateral DVT. ANTIMICROBIALS: The patient is on: 1. Cefepime. 2. Vancomycin. PHYSICAL EXAMINATION: GENERAL: Chronically ill-appearing, elderly man who is in no distress. HEENT: Head atraumatic, normocephalic. Sclerae anicteric. Buccal mucosa dry. NECK: Supple. CHEST: Rise symmetrical. Breath sounds clear. HEART: S1, S2. ABDOMEN: Soft, bowel tones present. EXTREMITIES: With bilateral lower extremity edema, erythema, left more than right. ASSESSMENT: 1. Fwmij-[id number] bilateral lower extremity cellulitis. 2. Bilateral lower extremity DVT. 3. Anemia. 4. Homelessness. PLAN: The patient remains stable. Continue present care, abx, Silvadene to lower extremities. Keep lower extremities elevated. DW staff Problems: Consultation Date/Type/Reason Admit Date/Time Jul 05, 2017 at 13:15 Initial Consult Date Type of Consultation: ID Exam/Review of Systems Vital Signs Vitals Vital Signs Date Time Temp Pulse Resp B/P Pulse Ox O2 Delivery O2 Flow Rate FiO2 07/07/17 07:45 98.6 89 18 121/81 93 07/06/17 18:55 Room Air Intake and Output 07/06/17 07/06/17 07/07/17 15:00 23:00 07:00 Intake Total 50 ml 1330 ml Output Total 500 ml Balance 50 ml 830 ml Results Result Diagram: 07/06/17 1425 07/06/17 1425 Medications Medications Current Medications Ondansetron HCl (Zofran Inj) 4 mg Q6H PRN IV NAUSEA AND/OR VOMITING; Start at 01:30 Acetaminophen (Tylenol Tab) 650 mg Q6H PRN PO PAIN LEVEL 1-3 OR FEVER; Start 07/05/17 at 01:30 Morphine Sulfate (morphine) 2 mg Q4H PRN IV SEVERE PAIN LEVEL 7-10 Last administered on 07/07/17t 14:13; Admin Dose 2 MG; Start 07/05/17 at 01:30 Famotidine (Pepcid Iv) 20 mg Q12 IV Last administered on 07/07/17 09:50; Admin Dose 20 MG; Start 07/05/17 at 09:00 Dabigatran (PRADaxa) 150 mg BID PO Last administered on 07/07/17 10:37; Admin Dose 150 MG; Start 07/05/17 at 09:00 Lorazepam (Ativan) 1 mg Q3H PRN IV anxiety Last administered on 07/07/17 02: 56; Admin Dose 1 MG; Start 07/05/17 at 01:30 Lorazepam 2 mg 2 mg Q1H PRN IV withdrawal Last administered on 07/06/17 10:18 ; Admin Dose 2 MG; Start 07/05/17 at 01:30 Cefepime HCl (Maxipime 1gm/50 ml (Pmx)) 50 ml @ 100 mls/hr Q12 IVPB Last administered on 07/07/17 09:51; Admin Dose 100 MLS/HR; Start 07/05/17 at 09: 00 Acetaminophen/ Hydrocodone Bitart 1 tab 1 tab Q4H PRN PO pain Last administered on 07/07/17 10:37; Admin Dose 1 TAB; Start 07/05/17 at 01:30 Vancomycin HCl/ Dextrose (Vancocin/D5W) 250 ml @ 83.333 mls/ hr Q12H IVPB Last administered on 07/07/17 14:11; Admin Dose 83.333 MLS/HR; Start at 02:00; Stop 07/08/17 at 01:59 Betamethasone/ Clotrimazole (Lotrisone Cr) 1 applic BID TOP Last administered on 07/07/17 02:25; Admin Dose 1 APPLIC; Start 07/05/17 at 21:00 Ibuprofen 600 mg 600 mg Q6 PO Last administered on 07/07/17 02:26; Admin Dose 600 MG; Start 07/05/17 at 18:00 Multivitamins/ Thiamine HCl/ Folic Acid/Sodium Chloride (Mvi Adult/ Vitamin B1/ Folic Acid/NS) 1,011.2 ml @ 125 mls/ hr DAILY@09 IVPB Last administered on 09:51; Admin Dose 125 MLS/HR; Start 07/05/17 at 21:00 Silver Sulfadiazine (Thermazene 1% 25 Gm) 1 applic BID TOP Last administered on 07/06/17t 23:53; Admin Dose 1 APPLIC; Start 07/06/17 at 22:00 Miscellaneous Information Patients own medicat... BID@10,16 XX ; Start at 10:00 Vancomycin HCl/ Sodium Chloride (Vancocin/Sodium Chloride) 250 ml @ 83.333 mls / hr Q12H IVPB ; Start 07/08/17 at 02:00 DB BASSETT NP Jul 07, 2017 14:56
[2017-07-07 15:00] VITALS: BP 109/72; RESP 18
[2017-07-07] MEDS: DIPHENHYDRAMINE 25 MG CAP PO PRN ×2 (15:41→22:02)
[2017-07-07] MEDS ORDERED: KETOROLAC 15 MG INJ IV PRN (18:00)
[2017-07-07 20:00] VITALS: BP 133/83; RESP 20
[2017-07-08] MEDS: LORAZEPAM 2 MG INJ IV PRN (00:33)
[2017-07-08] MEDS: IBUPROFEN 600 MG TAB PO SCH ×5 (00:35→23:11)
[2017-07-08 02:00] VITALS: BP 105/57; RESP 20
[2017-07-08] MEDS: VANCOMYCIN 1.25 GM in SODIUM CHLORIDE 0.45 % 250 ML IVPB SCH ×2 (02:51→14:19)
[2017-07-08] MEDS: morphine 2 MG INJ IV PRN ×5 (02:57→20:41)
[2017-07-08] MEDS ORDERED: ALBUTEROL HFA 8 GM INHALER INH PRN (03:00)
[2017-07-08 08:00] VITALS: BP 110/61; RESP 20
[2017-07-08] MEDS: DABIGATRAN 150 MG CAP PO SCH ×2 (08:53→23:11)
[2017-07-08] MEDS: FAMOTIDINE 20 MG INJ IV SCH (08:53)
[2017-07-08] MEDS: CEFEPIME 1GM/50 ML (PMX) 50 ML IVPB SCH ×2 (08:53→20:39)
[2017-07-08] MEDS: DIPHENHYDRAMINE 1%/ZINC 28.3 GM CR TOP PRN (08:53)
[2017-07-08] MEDS: MULTIVITAMINS 10 ML, THIAMINE 100 MG, FOLIC ACID 1 MG in SOD CHLORIDE 0.9% 1,000 ML IVPB SCH (08:53)
[2017-07-08] MEDS ORDERED: MULTIVITAMINS 10 ML, THIAMINE 100 MG, FOLIC ACID 1 MG in SOD CHLORIDE 0.9% 1,000 ML IVPB SCH (09:00)
[2017-07-08] MEDS: SILVER SULFADIAZINE 1% 25 GM CR TOP SCH ×2 (09:03→20:32)
[2017-07-08] MEDS: BETAMETHASONE/CLOTRIMAZOLE 15 GM CR TOP SCH ×2 (09:03→20:32)
[2017-07-08] MEDS: DIPHENHYDRAMINE 25 MG CAP PO PRN ×2 (11:14→23:29)
--- NOTE | 2017-07-08 12:54 | PN ---
Date/Time of Note Date/Time of Note DATE: 07/08/17 TIME: 12:49 Assessment/Plan VTE Prophylaxis VTE Prophylaxis Intervention: heparin Lines/Catheters IV [facility]from [facility] Saline Lock Urinary Cath still in place: No Assessment/Plan Problems: (1) Osteoarthritis of knees, bilateral Status: Chronic Comment: Patient reports he is under the care of Dr. Best and is actually already set up to have surgical repair performed at [facility]. In terms of giving him access to narcotics this will be done a somewhat judicious fashion. His artery receiving nonsteroidal anti- inflammatory drugs. 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 He has some chronic venous stasis changes. Please note he is fully aware of this but he have to carefully ask questions to get the details from him. Since he has an IVC filter anticoagulation is not appropriate in the setting (3) Presence of IVC filter Onset Date: ~ 06/2012 Status: Chronic Comment: This dates back to his placement at [facility] (4) Tobacco abuse disorder Status: Chronic Comment: Counseled (5) Alcohol abuse Status: Chronic Comment: He repetitively states that it has been more than 4 weeks since his last cocktail. Because of this I am going to decrease his access to benzodiazepines and also decrease his usage of other hospital supplies (6) Homelessness Status: Chronic Comment: He is here for the holidays (7) Bipolar affective disorder Status: Chronic Comment: This would be an appropriate location to use combination of lamotrigine with lithium and an SSRI drug Qualifiers: Active/Remission status: currently active Current bipolar episode type: hypomanic Qualified Code: F31.0 - Bipolar affective disorder, current episode hypomanic (8) Noncompliance Status: Chronic Comment: He is frequent and many of the hospitals in the area. Subjective 24 Hr Interval Summary Free Text/Dictation Patient very clearly on repetitive questioning reports no alcohol consumption for over 4 weeks. Constitutional: no complaints (No fevers chills or sweats) Respiratory: no complaints Cardiovascular: no complaints Gastrointestinal: no complaints Genitourinary: no complaints Musculoskeletal: other (Bilateral knee pain chronic) Exam/Review of Systems Vital Signs Vitals Vital Signs Date Time Temp Pulse Resp B/P Pulse Ox O2 Delivery O2 Flow Rate FiO2 07/08/17 08:00 98.8 77 20 110/61 96 07/06/17 18:55 Room Air Intake and Output 07/07/17 07/07/17 07/08/17 15:00 23:00 07:00 Intake Total 50 ml 1733.33 ml Output Total 1400 ml Balance 50 ml 333.33 ml Exam Constitutional: alert, oriented Respiratory: clear to auscultation, normal air movement Cardiovascular: nl pulses, regular rate and rhythm Gastrointestinal: nl liver, spleen, non-tender, soft Results Result Diagram: 07/06/17 1425 07/06/17 1425 Results 24 hrs Laboratory Tests Test 07/07/17 21:15 Stool Occult Blood NEGATIVE Medications Medications Current Medications Ondansetron HCl (Zofran Inj) 4 mg Q6H PRN IV NAUSEA AND/OR VOMITING; Start at 01:30 Acetaminophen (Tylenol Tab) 650 mg Q6H PRN PO PAIN LEVEL 1-3 OR FEVER; Start 07/05/17 at 01:30 Morphine Sulfate (morphine) 2 mg Q4H PRN IV SEVERE PAIN LEVEL 7-10 Last administered on 07/08/17 12:46; Admin Dose 2 MG; Start 07/05/17 at 01:30 Famotidine (Pepcid Iv) 20 mg Q12 IV Last administered on 07/08/17 08:53; Admin Dose 20 MG; Start 07/05/17 at 09:00 Dabigatran (PRADaxa) 150 mg BID PO Last administered on 07/08/17 08:53; Admin Dose 150 MG; Start 07/05/17 at 09:00 Lorazepam (Ativan) 1 mg Q3H PRN IV anxiety Last administered on 07/07/17 02: 56; Admin Dose 1 MG; Start 07/05/17 at 01:30 Lorazepam 2 mg 2 mg Q1H PRN IV withdrawal Last administered on 07/08/17 00:33 ; Admin Dose 2 MG; Start 07/05/17 at 01:30 Cefepime HCl (Maxipime 1gm/50 ml (Pmx)) 50 ml @ 100 mls/hr Q12 IVPB Last administered on 07/08/17 08:53; Admin Dose 100 MLS/HR; Start 07/05/17 at 09: 00 Acetaminophen/ Hydrocodone Bitart (Maxwell (5/325)) 1 tab Q4H PRN PO pain Last administered on 07/07/17 10:37; Admin Dose 1 TAB; Start 07/05/17 at 01:30 Betamethasone/ Clotrimazole (Lotrisone Cr) 1 applic BID TOP Last administered on 07/08/17 09:03; Admin Dose 1 APPLIC; Start 07/05/17 at 21:00 Ibuprofen 600 mg 600 mg Q6 PO Last administered on 07/08/17 11:13; Admin Dose 600 MG; Start 07/05/17 at 18:00 Multivitamins/ Thiamine HCl/ Folic Acid/Sodium Chloride (Mvi Adult/ Vitamin B1/ Folic Acid/NS) 1,011.2 ml @ 125 mls/ hr DAILY@09 IVPB Last administered on 08:53; Admin Dose 125 MLS/HR; Start 07/05/17 at 21:00 Silver Sulfadiazine (Thermazene 1% 25 Gm) 1 applic BID TOP Last administered on 07/08/17 09:03; Admin Dose 1 APPLIC; Start 07/06/17 at 22:00 Miscellaneous Information Patients own medicat... BID@10,16 XX ; Start at 10:00 Vancomycin HCl/ Sodium Chloride (Vancocin/Sodium Chloride) 250 ml @ 83.333 mls / hr Q12H IVPB Last administered on 07/08/17 02:51; Admin Dose 83.333 MLS/HR ; Start 07/08/17 at 02:00 Diphenhydramine HCl (Benadryl) 25 mg Q6H PRN PO ITCHING Last administered on 11:14; Admin Dose 25 MG; Start 07/07/17 at 15:30 Ketorolac Tromethamine (Toradol) 15 mg Q6H PRN IV PAIN; Start 07/07/17 at 18: 00; Stop 07/10/17 at 17:59 Diphenhydramine/ Zinc Oxide (Benadryl 1% Cr) 1 applic Q6 PRN TOP ITCHING Last administered on 07/08/17 08:53; Admin Dose 1 APPLIC; Start 07/08/17 at 03:00 KERI LOYA MD Jul 08, 2017 12:54
[2017-07-08] MEDS ORDERED: LORAZEPAM 0.5 MG TAB PO PRN (13:00)
[2017-07-08 14:00] VITALS: BP 110/61; RESP 20
[2017-07-08] MEDS: TERBINAFINE 250 MG TAB PO SCH ×2 (14:20→20:39)
[2017-07-08] MEDS: BUPROPION (XL) 150 MG TAB PO SCH (14:20)
[2017-07-08] MEDS: DULOXETINE 30 MG CAP DR PO SCH (14:20)
[2017-07-08] MEDS: LAMOTRIGINE 25 MG TAB PO SCH (14:20)
[2017-07-08] MEDS: HYDROCODONE/APAP (5/325) TAB PO PRN ×2 (14:20→18:35)
[2017-07-08] MEDS: AMMONIUM LACTATE 12% 225 GM LOT TOP SCH ×2 (14:21→20:34)
--- NOTE | 2017-07-08 17:32 | CONS ---
Date/Time of Note Date/Time of Note DATE: 07/08/17 TIME: 17:31 Assessment/Plan Assessment/Plan Chief Complaint/Hosp Course SUBJECTIVE: No acute changes overnight. The patient is awake, looks comfortable, no fevers. MICROBIOLOGY: Blood cultures negative. DIAGNOSTICS: Ultrasound of lower extremities revealed bilateral DVT. ANTIMICROBIALS: 1. Cefepime. 2. Vancomycin. PHYSICAL EXAMINATION: GENERAL: Chronically ill-appearing, elderly man who is in no distress. HEENT: Head atraumatic, normocephalic. Sclerae anicteric. Buccal mucosa dry. NECK: Supple. CHEST: Rise symmetrical. Breath sounds clear. HEART: S1, S2. ABDOMEN: Soft, bowel tones present. EXTREMITIES: With bilateral lower extremity edema and erythema ASSESSMENT: 1. Ieupi-hm-jgikomo bilateral lower extremity cellulitis. 2. Bilateral lower extremity DVT. 3. Anemia. 4. Homelessness. PLAN: The patient remains stable. Continue present care, continue on current abx and topical Silvadene BID. Keep lower extremities elevated. DW staff Problems: Consultation Date/Type/Reason Admit Date/Time Jul 05, 2017 at 13:15 Type of Consultation: ID Exam/Review of Systems Vital Signs Vitals Vital Signs Date Time Temp Pulse Resp B/P Pulse Ox O2 Delivery O2 Flow Rate FiO2 07/08/17 14:00 98.8 77 20 110/61 96 07/06/17 18:55 Room Air Intake and Output 07/07/17 07/07/17 07/08/17 15:00 23:00 07:00 Intake Total 50 ml 1733.33 ml Output Total 1400 ml Balance 50 ml 333.33 ml Results Result Diagram: 07/06/17 1425 07/06/17 1425 Results 24 hrs Laboratory Tests Test 07/07/17 21:15 Stool Occult Blood NEGATIVE Medications Medications Current Medications Ondansetron HCl (Zofran Inj) 4 mg Q6H PRN IV NAUSEA AND/OR VOMITING; Start at 01:30 Acetaminophen (Tylenol Tab) 650 mg Q6H PRN PO PAIN LEVEL 1-3 OR FEVER; Start 07/05/17 at 01:30 Morphine Sulfate (morphine) 2 mg Q4H PRN IV SEVERE PAIN LEVEL 7-10 Last administered on 07/08/17t 16:42; Admin Dose 2 MG; Start 07/05/17 at 01:30 Dabigatran 150 mg 150 mg BID PO Last administered on 07/08/17 08:53; Admin Dose 150 MG; Start 07/05/17 at 09:00 Cefepime HCl (Maxipime 1gm/50 ml (Pmx)) 50 ml @ 100 mls/hr Q12 IVPB Last administered on 07/08/17 08:53; Admin Dose 100 MLS/HR; Start 07/05/17 at 09: 00 Acetaminophen/ Hydrocodone Bitart ([place] (5/325)) 1 tab Q4H PRN PO pain Last administered on 07/08/17 14:20; Admin Dose 1 TAB; Start 07/05/17 at 01:30 Betamethasone/ Clotrimazole (Lotrisone Cr) 1 applic BID TOP Last administered on 07/08/17 09:03; Admin Dose 1 APPLIC; Start 07/05/17 at 21:00 Ibuprofen (Motrin) 600 mg Q6 PO Last administered on 07/08/17 11:13; Admin Dose 600 MG; Start 07/05/17 at 18:00 Silver Sulfadiazine (Thermazene 1% 25 Gm) 1 applic BID TOP Last administered on 07/08/17 09:03; Admin Dose 1 APPLIC; Start 07/06/17 at 22:00 Miscellaneous Information Patients own medicat... BID@10,16 XX ; Start at 10:00 Vancomycin HCl/ Sodium Chloride (Vancocin/Sodium Chloride) 250 ml @ 83.333 mls / hr Q12H IVPB Last administered on 07/08/17 14:19; Admin Dose 83.333 MLS/HR ; Start 07/08/17 at 02:00 Diphenhydramine HCl (Benadryl) 25 mg Q6H PRN PO ITCHING Last administered on 11:14; Admin Dose 25 MG; Start 07/07/17 at 15:30 Ketorolac Tromethamine (Toradol) 15 mg Q6H PRN IV PAIN; Start 07/07/17 at 18: 00; Stop 07/10/17 at 17:59 Diphenhydramine/ Zinc Oxide (Benadryl 1% Cr) 1 applic Q6 PRN TOP ITCHING Last administered on 07/08/17 08:53; Admin Dose 1 APPLIC; Start 07/08/17 at 03:00 Lorazepam (Ativan) 1 mg Q6H PRN PO anxiety; Start 07/08/17 at 13:00 Terbinafine HCl (Lamisil) 250 mg BID PO Last administered on 07/08/17 14:20; Admin Dose 250 MG; Start 07/08/17 at 13:00; Stop 07/15/17 at 12:59 Famotidine (Pepcid) 20 mg BID PO ; Start 07/08/17 at 21:00 Ammonium Lactate (Lac-Hydrin 12% Lotion) 1 applic BID TOP Last administered on 07/08/17 14:21; Admin Dose 1 APPLIC; Start 07/08/17 at 13:00 Lamotrigine (Lamictal) 25 mg DAILY PO Last administered on 07/08/17 14:20; Admin Dose 25 MG; Start 07/08/17 at 13:00 Duloxetine HCl (Cymbalta) 30 mg DAILY PO Last administered on 07/08/17 14:20 ; Admin Dose 30 MG; Start 07/08/17 at 13:00 Bupropion HCl (Wellbutrin Xl) 150 mg DAILY PO Last administered on 07/08/17 14:20; Admin Dose 150 MG; Start 07/08/17 at 13:00 DB BASSETT NP Jul 08, 2017 17:32
[2017-07-08 20:00] VITALS: BP 132/88; RESP 20
[2017-07-08] MEDS: FAMOTIDINE 20 MG TAB PO SCH (20:39)
[2017-07-09] MEDS: morphine 2 MG INJ IV PRN ×6 (01:04→21:37)
[2017-07-09] MEDS: VANCOMYCIN 1.25 GM in SODIUM CHLORIDE 0.45 % 250 ML IVPB SCH ×2 (01:04→14:16)
[2017-07-09 02:00] VITALS: BP 121/73; RESP 20
[2017-07-09] MEDS: IBUPROFEN 600 MG TAB PO SCH ×4 (06:00→23:42)
[2017-07-09 06:16] LABS: BASOPHILS % 0.8 % (0.0-2.0); EOSINOPHILS # 0.6 10^3/ul (0.0-0.5); HEMATOCRIT 28.3 % (42.0-52.0); HEMOGLOBIN 8.8 g/dl (14.0-18.0); LYMPHOCYTES # 0.8 10^3/ul (0.8-2.9); LYMPHOCYTES % 16.6 % (15.0-51.0); MEAN CORPUSCULAR HEMOGLOBIN 28.1 pg (29.0-33.0); MEAN CORPUSCULAR HGB CONC 31.1 g/dl (32.0-37.0); MEAN CORPUSCULAR VOLUME 90.4 fl (82.0-101.0); MEAN PLATELET VOLUME 8.9 fl (7.4-10.4); MONOCYTE # 0.8 10^3/ul (0.3-0.9); NEUTROPHIL # 2.7 10^3/ul (1.6-7.5); PLATELET COUNT 297 10^3/UL (140-415); RED BLOOD COUNT 3.13 10^6/ul (4.70-6.10); RED CELL DISTRIBUTION WIDTH 14.4 % (11.5-14.5); WHITE BLOOD COUNT 5.1 10^3/ul (4.8-10.8)
[2017-07-09 06:57] LABS: CALCIUM 8.1 mg/dl (8.4-10.2); CREATININE 0.72 mg/dl (0.61-1.24); MAGNESIUM 1.9 mg/dl (1.7-2.5); POTASSIUM 4.2 mmol/L (3.5-5.1)
[2017-07-09 08:00] VITALS: BP 100/57; RESP 18
[2017-07-09] MEDS: LAMOTRIGINE 25 MG TAB PO SCH (08:22)
[2017-07-09] MEDS: TERBINAFINE 250 MG TAB PO SCH ×2 (08:22→21:41)
[2017-07-09] MEDS: CEFEPIME 1GM/50 ML (PMX) 50 ML IVPB SCH (08:22)
[2017-07-09] MEDS: DULOXETINE 30 MG CAP DR PO SCH (08:23)
[2017-07-09] MEDS: DIPHENHYDRAMINE 1%/ZINC 28.3 GM CR TOP PRN (08:23)
[2017-07-09] MEDS: DABIGATRAN 150 MG CAP PO SCH ×2 (08:23→21:35)
[2017-07-09] MEDS: BUPROPION (XL) 150 MG TAB PO SCH (08:23)
[2017-07-09] MEDS: FAMOTIDINE 20 MG TAB PO SCH ×2 (08:23→21:36)
[2017-07-09] MEDS: HYDROCODONE/APAP (5/325) TAB PO PRN ×4 (08:25→23:41)
--- NOTE | 2017-07-09 11:31 | PN ---
Date/Time of Note Date/Time of Note DATE: 07/09/17 TIME: 11:28 Assessment/Plan VTE Prophylaxis VTE Prophylaxis Intervention: heparin Lines/Catheters IV [facility] Type [facility]from [facility] [place] Urinary Cath still in place: No Assessment/Plan Problems: (1) Bilateral lower leg cellulitis Status: Acute Comment: Responding nicely to antibiotics. 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 (3) Presence of IVC filter Onset Date: ~ 06/2012 Status: Chronic Comment: Noted. Will always have this abnormality (4) Bipolar affective disorder Status: Chronic Comment: Tolerating the medication treatment. Add in nocturnal lithium at low- dose as a controller Qualifiers: Active/Remission status: currently active Current bipolar episode type: hypomanic Qualified Code: F31.0 - Bipolar affective disorder, current episode hypomanic (5) Osteoarthritis of knees, bilateral Status: Chronic Comment: As per orthopedic Dr. Best Qualifiers: Osteoarthritis type: primary Qualified Code: M17.0 - Primary osteoarthritis of both knees Subjective 24 Hr Interval Summary Free Text/Dictation Patient reports that his legs are feeling better. In addition some of his other social issues are coming into line Constitutional: no complaints Respiratory: no complaints Cardiovascular: no complaints Gastrointestinal: no complaints Exam/Review of Systems Vital Signs Vitals Vital Signs Date Time Temp Pulse Resp B/P Pulse Ox O2 Delivery O2 Flow Rate FiO2 07/09/17 08:00 97.9 63 18 100/57 92 07/06/17 18:55 Room Air Intake and Output 07/08/17 07/08/17 07/09/17 15:00 23:00 07:00 Intake Total 800 ml 1140 ml 2591.2 ml Output Total 1000 ml 1300 ml Balance 800 ml 140 ml 1291.2 ml Exam Constitutional: alert, oriented Respiratory: clear to auscultation, normal air movement Cardiovascular: nl pulses, regular rate and rhythm Extremities: other (Areas of abrasion and cellulitis are improving) Results Result Diagram: 07/09/17 0454 07/09/17 0454 Results 24 hrs Laboratory Tests Test 07/09/17 04:54 White Blood Count 5.1 # Red Blood Count 3.13 L Hemoglobin 8.8 L Hematocrit 28.3 L Mean Corpuscular Volume 90.4 Mean Corpuscular Hemoglobin 28.1 L Mean Corpuscular Hemoglobin Concent 31.1 L Red Cell Distribution Width 14.4 Platelet Count 297 Mean Platelet Volume 8.9 Neutrophils % 54.0 Lymphocytes % 16.6 Monocytes % 16.0 H Eosinophils % 12.0 H Basophils % 0.8 Nucleated Red Blood Cells % 0.0 Neutrophils # 2.7 Lymphocytes # 0.8 Monocytes # 0.8 Eosinophils # 0.6 H Basophils # 0.0 Nucleated Red Blood Cells # 0.0 Sodium Level 140 Potassium Level 4.2 Chloride Level 109 Carbon Dioxide Level 27 Anion Gap 8 Blood Urea Nitrogen 16 Creatinine 0.72 Glucose Level 98 Calcium Level 8.1 L Magnesium Level 1.9 Medications Medications Current Medications Ondansetron HCl (Zofran Inj) 4 mg Q6H PRN IV NAUSEA AND/OR VOMITING; Start at 01:30 Acetaminophen (Tylenol Tab) 650 mg Q6H PRN PO PAIN LEVEL 1-3 OR FEVER; Start 07/05/17 at 01:30 Morphine Sulfate (morphine) 2 mg Q4H PRN IV SEVERE PAIN LEVEL 7-10 Last administered on 07/09/17 09:42; Admin Dose 2 MG; Start 07/05/17 at 01:30 Dabigatran 150 mg 150 mg BID PO Last administered on 07/09/17 08:23; Admin Dose 150 MG; Start 07/05/17 at 09:00 Cefepime HCl (Maxipime 1gm/50 ml (Pmx)) 50 ml @ 100 mls/hr Q12 IVPB Last administered on 07/09/17 08:22; Admin Dose 100 MLS/HR; Start 07/05/17 at 09: 00 Acetaminophen/ Hydrocodone Bitart ([place] (5/325)) 1 tab Q4H PRN PO pain Last administered on 07/09/17 08:25; Admin Dose 1 TAB; Start 07/05/17 at 01:30 Betamethasone/ Clotrimazole (Lotrisone Cr) 1 applic BID TOP Last administered on 07/08/17 20:32; Admin Dose 1 APPLIC; Start 07/05/17 at 21:00 Ibuprofen (Motrin) 600 mg Q6 PO Last administered on 07/08/17 23:11; Admin Dose 600 MG; Start 07/05/17 at 18:00 Silver Sulfadiazine (Thermazene 1% 25 Gm) 1 applic BID TOP Last administered on 07/08/17 20:32; Admin Dose 1 APPLIC; Start 07/06/17 at 22:00 Miscellaneous Information Patients own medicat... BID@10,16 XX ; Start at 10:00 Vancomycin HCl/ Sodium Chloride (Vancocin/Sodium Chloride) 250 ml @ 83.333 mls / hr Q12H IVPB Last administered on 07/09/17 01:04; Admin Dose 83.333 MLS/HR ; Start 07/08/17 at 02:00 Diphenhydramine HCl (Benadryl) 25 mg Q6H PRN PO ITCHING Last administered on 23:29; Admin Dose 25 MG; Start 07/07/17 at 15:30 Ketorolac Tromethamine (Toradol) 15 mg Q6H PRN IV PAIN; Start 07/07/17 at 18: 00; Stop 07/10/17 at 17:59 Diphenhydramine/ Zinc Oxide (Benadryl 1% Cr) 1 applic Q6 PRN TOP ITCHING Last administered on 07/09/17 08:23; Admin Dose 1 APPLIC; Start 07/08/17 at 03:00 Lorazepam (Ativan) 1 mg Q6H PRN PO anxiety; Start 07/08/17 at 13:00 Terbinafine HCl (Lamisil) 250 mg BID PO Last administered on 07/09/17 08:22; Admin Dose 250 MG; Start 07/08/17 at 13:00; Stop 07/15/17 at 12:59 Famotidine (Pepcid) 20 mg BID PO Last administered on 07/09/17 08:23; Admin Dose 20 MG; Start 07/08/17 at 21:00 Ammonium Lactate (Lac-Hydrin 12% Lotion) 1 applic BID TOP Last administered on 07/08/17 20:34; Admin Dose 1 APPLIC; Start 07/08/17 at 13:00 Lamotrigine (Lamictal) 25 mg DAILY PO Last administered on 07/09/17 08:22; Admin Dose 25 MG; Start 07/08/17 at 13:00 Duloxetine HCl (Cymbalta) 30 mg DAILY PO Last administered on 07/09/17 08:23 ; Admin Dose 30 MG; Start 07/08/17 at 13:00 Bupropion HCl (Wellbutrin Xl) 150 mg DAILY PO Last administered on 07/09/17 08:23; Admin Dose 150 MG; Start 07/08/17 at 13:00 Copies To: CC: ELO HARTMAN MD, JOSHUA A MD Jul 09, 2017 11:31
[2017-07-09] MEDS: BETAMETHASONE/CLOTRIMAZOLE 15 GM CR TOP SCH ×2 (13:01→21:36)
[2017-07-09] MEDS: SILVER SULFADIAZINE 1% 25 GM CR TOP SCH ×2 (13:01→21:36)
[2017-07-09] MEDS: AMMONIUM LACTATE 12% 225 GM LOT TOP SCH ×2 (13:01→21:36)
[2017-07-09 14:00] VITALS: BP 122/74; RESP 17
[2017-07-09] MEDS ORDERED: LORAZEPAM 1 MG TAB PO PRN (14:00)
--- NOTE | 2017-07-09 18:29 | CONS ---
Date/Time of Note Date/Time of Note DATE: 07/09/17 TIME: 18:28 Assessment/Plan Assessment/Plan Chief Complaint/Hosp Course SUBJECTIVE: Awake, looks comfortable, no fevers. MICROBIOLOGY: Blood cultures negative. DIAGNOSTICS: Ultrasound of lower extremities revealed bilateral DVT. ANTIMICROBIALS: 1. Cefepime. 2. Vancomycin. PHYSICAL EXAMINATION: GENERAL: Chronically ill-appearing, elderly man who is in no distress. HEENT: Head atraumatic, normocephalic. Sclerae anicteric. Buccal mucosa dry. NECK: Supple. CHEST: Rise symmetrical. Breath sounds clear. HEART: S1, S2. ABDOMEN: Soft, bowel tones present. EXTREMITIES: With bilateral lower extremity edema and erythema ASSESSMENT: 1. Rohaw-ku-mnsgafk bilateral lower extremity cellulitis. 2. Bilateral lower extremity DVT. 3. Anemia. 4. Homelessness. PLAN: The patient remains stable. Will change Cefepime to Levaquin, continue Vanco and topical Silvadene BID. Keep lower extremities elevated. DW staff Problems: Consultation Date/Type/Reason Admit Date/Time Jul 05, 2017 at 13:15 Type of Consultation: ID Exam/Review of Systems Vital Signs Vitals Vital Signs Date Time Temp Pulse Resp B/P Pulse Ox O2 Delivery O2 Flow Rate FiO2 07/09/17 14:00 97.8 72 17 122/74 93 07/06/17 18:55 Room Air Intake and Output 07/08/17 07/08/17 07/09/17 14:59 22:59 06:59 Intake Total 800 ml 1140 ml 2591.2 ml Output Total 1000 ml 1300 ml Balance 800 ml 140 ml 1291.2 ml Results Result Diagram: 07/09/17 0454 07/09/17 0454 Results 24 hrs Laboratory Tests Test 07/09/17 04:54 White Blood Count 5.1 # Red Blood Count 3.13 L Hemoglobin 8.8 L Hematocrit 28.3 L Mean Corpuscular Volume 90.4 Mean Corpuscular Hemoglobin 28.1 L Mean Corpuscular Hemoglobin Concent 31.1 L Red Cell Distribution Width 14.4 Platelet Count 297 Mean Platelet Volume 8.9 Neutrophils % 54.0 Lymphocytes % 16.6 Monocytes % 16.0 H Eosinophils % 12.0 H Basophils % 0.8 Nucleated Red Blood Cells % 0.0 Neutrophils # 2.7 Lymphocytes # 0.8 Monocytes # 0.8 Eosinophils # 0.6 H Basophils # 0.0 Nucleated Red Blood Cells # 0.0 Sodium Level 140 Potassium Level 4.2 Chloride Level 109 Carbon Dioxide Level 27 Anion Gap 8 Blood Urea Nitrogen 16 Creatinine 0.72 Glucose Level 98 Calcium Level 8.1 L Magnesium Level 1.9 Medications Medications Current Medications Ondansetron HCl (Zofran Inj) 4 mg Q6H PRN IV NAUSEA AND/OR VOMITING; Start at 01:30 Acetaminophen (Tylenol Tab) 650 mg Q6H PRN PO PAIN LEVEL 1-3 OR FEVER; Start 07/05/17 at 01:30 Morphine Sulfate (morphine) 2 mg Q4H PRN IV SEVERE PAIN LEVEL 7-10 Last administered on 07/09/17 18:17; Admin Dose 2 MG; Start 07/05/17 at 01:30 Dabigatran 150 mg 150 mg BID PO Last administered on 07/09/17 08:23; Admin Dose 150 MG; Start 07/05/17 at 09:00 Cefepime HCl (Maxipime 1gm/50 ml (Pmx)) 50 ml @ 100 mls/hr Q12 IVPB Last administered on 07/09/17 08:22; Admin Dose 100 MLS/HR; Start 07/05/17 at 09: 00; Stop 07/15/17 at 13:00 Acetaminophen/ Hydrocodone Bitart ([place] (5/325)) 1 tab Q4H PRN PO pain Last administered on 07/09/17 12:58; Admin Dose 1 TAB; Start 07/05/17 at 01:30 Betamethasone/ Clotrimazole (Lotrisone Cr) 1 applic BID TOP Last administered on 07/09/17 13:01; Admin Dose 1 APPLIC; Start 07/05/17 at 21:00 Ibuprofen (Motrin) 600 mg Q6 PO Last administered on 07/08/17 23:11; Admin Dose 600 MG; Start 07/05/17 at 18:00 Silver Sulfadiazine (Thermazene 1% 25 Gm) 1 applic BID TOP Last administered on 07/09/17 13:01; Admin Dose 1 APPLIC; Start 07/06/17 at 22:00 Miscellaneous Information Patients own medicat... BID@10,16 XX ; Start at 10:00 Vancomycin HCl/ Sodium Chloride (Vancocin/Sodium Chloride) 250 ml @ 83.333 mls / hr Q12H IVPB Last administered on 07/09/17 14:16; Admin Dose 83.333 MLS/HR ; Start 07/08/17 at 02:00 Diphenhydramine HCl (Benadryl) 25 mg Q6H PRN PO ITCHING Last administered on 23:29; Admin Dose 25 MG; Start 07/07/17 at 15:30 Ketorolac Tromethamine (Toradol) 15 mg Q6H PRN IV PAIN; Start 07/07/17 at 18: 00; Stop 07/10/17 at 17:59 Diphenhydramine/ Zinc Oxide (Benadryl 1% Cr) 1 applic Q6 PRN TOP ITCHING Last administered on 07/09/17 08:23; Admin Dose 1 APPLIC; Start 07/08/17 at 03:00 Terbinafine HCl (Lamisil) 250 mg BID PO Last administered on 07/09/17 08:22; Admin Dose 250 MG; Start 07/08/17 at 13:00; Stop 07/15/17 at 12:59 Famotidine (Pepcid) 20 mg BID PO Last administered on 07/09/17 08:23; Admin Dose 20 MG; Start 07/08/17 at 21:00 Ammonium Lactate (Lac-Hydrin 12% Lotion) 1 applic BID TOP Last administered on 07/09/17 13:01; Admin Dose 1 APPLIC; Start 07/08/17 at 13:00 Lamotrigine (Lamictal) 25 mg DAILY PO Last administered on 07/09/17 08:22; Admin Dose 25 MG; Start 07/08/17 at 13:00 Duloxetine HCl (Cymbalta) 30 mg DAILY PO Last administered on 07/09/17 08:23 ; Admin Dose 30 MG; Start 07/08/17 at 13:00 Bupropion HCl (Wellbutrin Xl) 150 mg DAILY PO Last administered on 07/09/17 08:23; Admin Dose 150 MG; Start 07/08/17 at 13:00 Lorazepam (Ativan) 1 mg Q8 PRN PO anxiety; Start 07/09/17 at 14:00 [place] Carbonate ([place] Carbonate) 300 mg QHS PO ; Start 07/09/17 at 21:00 DB BASSETT NP Jul 09, 2017 18:29
[2017-07-09 19:42] VITALS: BP 128/77; RESP 18
[2017-07-09] MEDS ORDERED: LITHIUM CARBONATE 300 MG CAP PO SCH (21:00)
[2017-07-10] MEDS: VANCOMYCIN 1.25 GM in SODIUM CHLORIDE 0.45 % 250 ML IVPB SCH (01:41)
[2017-07-10] MEDS: morphine 2 MG INJ IV PRN ×2 (01:41→05:47)
[2017-07-10 02:09] VITALS: BP 128/79; RESP 18
[2017-07-10] MEDS: HYDROCODONE/APAP (5/325) TAB PO PRN ×4 (04:00→23:34)
[2017-07-10] MEDS: IBUPROFEN 600 MG TAB PO SCH ×4 (05:46→23:34)
[2017-07-10] MEDS ORDERED: LEVOFLOXACIN 500 MG TAB PO SCH (06:00)
[2017-07-10 08:00] VITALS: BP 119/71; RESP 17
[2017-07-10] MEDS: FAMOTIDINE 20 MG TAB PO SCH (08:35)
[2017-07-10] MEDS: LAMOTRIGINE 25 MG TAB PO SCH (08:35)
[2017-07-10] MEDS: DULOXETINE 30 MG CAP DR PO SCH (08:35)
[2017-07-10] MEDS: TERBINAFINE 250 MG TAB PO SCH ×2 (08:35→20:47)
[2017-07-10] MEDS: DABIGATRAN 150 MG CAP PO SCH ×2 (08:35→20:47)
[2017-07-10] MEDS: BUPROPION (XL) 150 MG TAB PO SCH (08:35)
[2017-07-10] MEDS ORDERED: morphine 2 MG INJ IV STA (09:27)
[2017-07-10] MEDS: SILVER SULFADIAZINE 1% 25 GM CR TOP SCH ×2 (09:43→20:51)
[2017-07-10] MEDS: BETAMETHASONE/CLOTRIMAZOLE 15 GM CR TOP SCH ×2 (09:43→20:53)
[2017-07-10] MEDS: AMMONIUM LACTATE 12% 225 GM LOT TOP SCH ×2 (09:43→20:50)
[2017-07-10 14:00] VITALS: BP 114/69; RESP 18
--- NOTE | 2017-07-10 14:13 | PN ---
Date/Time of Note Date/Time of Note DATE: 07/10/17 TIME: 14:10 Assessment/Plan VTE Prophylaxis VTE Prophylaxis Intervention: SCD's Lines/Catheters IV Catheter Type (from Nrsg): Peripheral IV Urinary Cath still in place: No Assessment/Plan Assessment/Plan 67 yo M with bipolar d/o, chronic venous stasis, chronic LE DVTs here for LE cellulitis 2/2 chronic venous stasis PLAN #cellulitis: transition abx to PO. anticipate 7-10 days of therapy as per IDSA guidelines #chronic DVTs with hx IVC filter placement: cont home ATC #bipolar: does not appear to have been on any meds in the outpatient setting thus I am reluctant to start any here in the hospital #chronic knee OA: outpatient f/u #EtOHism: sw to see. STOP IV PAIN MEDS dispo pending sw consult for housing resources as pt is homeless Subjective 24 Hr Interval Summary Free Text/Dictation States his debit card should be here by tomorrow Exam/Review of Systems Vital Signs Vitals Vital Signs Date Time Temp Pulse Resp B/P Pulse Ox O2 Delivery O2 Flow Rate FiO2 07/10/17 08:00 98.4 73 17 119/71 94 07/06/17 18:55 Room Air Intake and Output 07/09/17 07/09/17 07/10/17 15:00 23:00 07:00 Intake Total 50 ml 1370 ml 900 ml Output Total 800 ml 750 ml Balance 50 ml 570 ml 150 ml Exam nad no mrg lungs clear abd soft +chronic venous stasis to bl LEs Results Result Diagram: 07/09/17 0454 07/09/17 0454 Medications Medications Current Medications Ondansetron HCl (Zofran Inj) 4 mg Q6H PRN IV NAUSEA AND/OR VOMITING; Start at 01:30 Acetaminophen (Tylenol Tab) 650 mg Q6H PRN PO PAIN LEVEL 1-3 OR FEVER; Start 07/05/17 at 01:30 Dabigatran (PRADaxa) 150 mg BID PO Last administered on 07/10/17 08:35; Admin Dose 150 MG; Start 07/05/17 at 09:00 Acetaminophen/ Hydrocodone Bitart ([place] (5/325)) 1 tab Q4H PRN PO pain Last administered on 07/10/17 13:44; Admin Dose 1 TAB; Start 07/05/17 at 01:30 Betamethasone/ Clotrimazole (Lotrisone Cr) 1 applic BID TOP Last administered on 07/10/17 09:43; Admin Dose 1 APPLIC; Start 07/05/17 at 21:00 Ibuprofen (Motrin) 600 mg Q6 PO Last administered on 07/10/17 11:32; Admin Dose 600 MG; Start 07/05/17 at 18:00 Silver Sulfadiazine (Thermazene 1% 25 Gm) 1 applic BID TOP Last administered on 07/10/17 09:43; Admin Dose 1 APPLIC; Start 07/06/17 at 22:00 Miscellaneous Information Patients own medicat... BID@ XX ; Start at 10:00 Diphenhydramine HCl (Benadryl) 25 mg Q6H PRN PO ITCHING Last administered on 23:29; Admin Dose 25 MG; Start 07/07/17 at 15:30 Ketorolac Tromethamine (Toradol) 15 mg Q6H PRN IV PAIN; Start 07/07/17 at 18: 00; Stop 07/10/17 at 17:59 Diphenhydramine/ Zinc Oxide (Benadryl 1% Cr) 1 applic Q6 PRN TOP ITCHING Last administered on 07/09/17 08:23; Admin Dose 1 APPLIC; Start 07/08/17 at 03:00 Terbinafine HCl (Lamisil) 250 mg BID PO Last administered on 07/10/17 08:35; Admin Dose 250 MG; Start 07/08/17 at 13:00; Stop 07/15/17 at 12:59 Famotidine (Pepcid) 20 mg BID PO Last administered on 07/10/17 08:35; Admin Dose 20 MG; Start 07/08/17 at 21:00 Ammonium Lactate (Lac-Hydrin 12% Lotion) 1 applic BID TOP Last administered on 07/10/17 09:43; Admin Dose 1 APPLIC; Start 07/08/17 at 13:00 Lamotrigine (Lamictal) 25 mg DAILY PO Last administered on 07/10/17 08:35; Admin Dose 25 MG; Start 07/08/17 at 13:00 Duloxetine HCl (Cymbalta) 30 mg DAILY PO Last administered on 07/10/17 08:35 ; Admin Dose 30 MG; Start 07/08/17 at 13:00 Bupropion HCl (Wellbutrin Xl) 150 mg DAILY PO Last administered on 07/10/17 08:35; Admin Dose 150 MG; Start 07/08/17 at 13:00 Lorazepam (Ativan) 1 mg Q8 PRN PO anxiety; Start 07/09/17 at 14:00 [place] Carbonate ([place] Carbonate) 300 mg QHS PO Last administered on 21:35; Admin Dose 300 MG; Start 07/09/17 at 21:00 Levofloxacin (Levaquin) 500 mg DAILY@06 PO Last administered on 07/10/17 05: 46; Admin Dose 500 MG; Start 07/10/17 at 06:00 Trimethoprim/ Sulfamethoxazole (Bactrim (Ds)) 1 tab BID PO ; Start 07/10/17 at 21:00 VODNA FUENTES MD Jul 10, 2017 14:13 [facility] 21:[facility]; Admin Dose 300 MG; Start 07/09/17 at 21:00 Levofloxacin (Levaquin) 500 mg DAILY@06 PO Last administered on 07/10/17 05: 46; Admin Dose 500 MG; Start 07/10/17 at 06:00 Trimethoprim/ Sulfamethoxazole (Bactrim (Ds)) 1 tab BID PO ; Start 07/10/17 at 21:00 VONDA FUENTES MD Jul 10, 2017 14:13
--- NOTE | 2017-07-10 18:31 | CONS ---
Date/Time of Note Date/Time of Note DATE: 07/10/17 TIME: 18:29 Assessment/Plan Assessment/Plan Chief Complaint/Hosp Course SUBJECTIVE: Awake, looks comfortable, no fevers. MICROBIOLOGY: Blood cultures negative. DIAGNOSTICS: Ultrasound of lower extremities revealed bilateral DVT. ANTIMICROBIALS: 1. Levaquin. 2. Bactrim. PHYSICAL EXAMINATION: GENERAL: Chronically ill-appearing, elderly man who is in no distress. HEENT: Head atraumatic, normocephalic. Sclerae anicteric. Buccal mucosa dry. NECK: Supple. CHEST: Rise symmetrical. Breath sounds clear. HEART: S1, S2. ABDOMEN: Soft, bowel tones present. EXTREMITIES: With bilateral lower extremity edema and erythema ASSESSMENT: 1. [id number]-[id number] bilateral lower extremity cellulitis. 2. Bilateral lower extremity DVT. 3. Anemia. 4. Homelessness. PLAN: The patient remains stable. Continue Bactrim, dc Levaquin, encourage to keep lower extremities elevated. DW staff Problems: Consultation Date/Type/Reason Admit Date/Time Jul 05, 2017 at 13:15 Type of Consultation: ID Exam/Review of Systems Vital Signs Vitals Vital Signs Date Time Temp Pulse Resp B/P Pulse Ox O2 Delivery O2 Flow Rate FiO2 07/10/17 14:00 98.0 77 18 114/69 94 07/06/17 18:55 Room Air Intake and Output 07/09/17 07/09/17 07/10/17 15:00 23:00 07:00 Intake Total 50 ml 1370 ml 900 ml Output Total 800 ml 750 ml Balance 50 ml 570 ml 150 ml Results Result Diagram: 07/09/17 0454 07/09/17 0454 Medications Medications Current Medications Ondansetron HCl (Zofran Inj) 4 mg Q6H PRN IV NAUSEA AND/OR VOMITING; Start at 01:30 Acetaminophen (Tylenol Tab) 650 mg Q6H PRN PO PAIN LEVEL 1-3 OR FEVER; Start 07/05/17 at 01:30 Dabigatran (PRADaxa) 150 mg BID PO Last administered on 07/10/17 08:35; Admin Dose 150 MG; Start 07/05/17 at 09:00 Betamethasone/ Clotrimazole (Lotrisone Cr) 1 applic BID TOP Last administered on 07/10/17 09:43; Admin Dose 1 APPLIC; Start 07/05/17 at 21:00 Ibuprofen (Motrin) 600 mg Q6 PO Last administered on 07/10/17 17:09; Admin Dose 600 MG; Start 07/05/17 at 18:00 Silver Sulfadiazine (Thermazene 1% 25 Gm) 1 applic BID TOP Last administered on 07/10/17 09:43; Admin Dose 1 APPLIC; Start 07/06/17 at 22:00 Miscellaneous Information Patients own medicat... BID@,16 XX ; Start at 10:00 Diphenhydramine HCl (Benadryl) 25 mg Q6H PRN PO ITCHING Last administered on 23:29; Admin Dose 25 MG; Start 07/07/17 at 15:30 Diphenhydramine/ Zinc Oxide (Benadryl 1% Cr) 1 applic Q6 PRN TOP ITCHING Last administered on 07/09/17 08:23; Admin Dose 1 APPLIC; Start 07/08/17 at 03:00 Terbinafine HCl (Lamisil) 250 mg BID PO Last administered on 07/10/17 08:35; Admin Dose 250 MG; Start 07/08/17 at 13:00; Stop 07/15/17 at 12:59 Ammonium Lactate (Lac-Hydrin 12% Lotion) 1 applic BID TOP Last administered on 07/10/17 09:43; Admin Dose 1 APPLIC; Start 07/08/17 at 13:00 Lorazepam (Ativan) 1 mg Q8 PRN PO anxiety; Start 07/09/17 at 14:00 Levofloxacin (Levaquin) 500 mg DAILY@06 PO Last administered on 07/10/17 05: 46; Admin Dose 500 MG; Start 07/10/17 at 06:00 Trimethoprim/ Sulfamethoxazole (Bactrim (Ds)) 1 tab BID PO ; Start 07/10/17 at 21:00 Acetaminophen/ Hydrocodone Bitart ([place] (5/325)) 2 tab Q4H PRN PO pain Last administered on 07/10/17 18:23; Admin Dose 2 TAB; Start 07/10/17 at 16:00 DB BASSETT NP Jul 10, 2017 18:31
[2017-07-10 20:13] VITALS: BP 108/62; RESP 16
[2017-07-10] MEDS: TRIMETHOPRIM/SULFAMETHOX (DS) TAB PO SCH (20:47)
[2017-07-11 02:54] VITALS: BP 118/73; RESP 16
[2017-07-11] MEDS: HYDROCODONE/APAP (5/325) TAB PO PRN ×3 (04:52→15:56)
[2017-07-11] MEDS: IBUPROFEN 600 MG TAB PO SCH ×3 (05:20→17:15)
[2017-07-11 08:04] VITALS: BP 127/77; RESP 18
[2017-07-11] MEDS: DABIGATRAN 150 MG CAP PO SCH (08:42)
[2017-07-11] MEDS: TERBINAFINE 250 MG TAB PO SCH (08:42)
[2017-07-11] MEDS: TRIMETHOPRIM/SULFAMETHOX (DS) TAB PO SCH (08:42)
[2017-07-11] MEDS: AMMONIUM LACTATE 12% 225 GM LOT TOP SCH (08:44)
[2017-07-11] MEDS: BETAMETHASONE/CLOTRIMAZOLE 15 GM CR TOP SCH (08:44)
[2017-07-11] MEDS: SILVER SULFADIAZINE 1% 25 GM CR TOP SCH (08:44)
[2017-07-11 14:53] VITALS: BP 119/85; RESP 19
--- NOTE | 2017-07-11 15:30 | PN ---
Date/Time of Note Date/Time of Note DATE: 07/11/17 TIME: 15:22 Assessment/Plan VTE Prophylaxis VTE Prophylaxis Intervention: SCD's Lines/Catheters IV Catheter Type (from Nrsg): Peripheral IV Urinary Cath still in place: No Assessment/Plan Assessment/Plan 67 yo M with bipolar d/o, chronic venous stasis, chronic LE DVTs here for LE cellulitis 2/2 chronic venous stasis PLAN #cellulitis: transition abx to PO. anticipate 7-10 days of therapy as per IDSA guidelines. end date entered into EMR #chronic DVTs with hx IVC filter placement: cont home ATC #bipolar: does not appear to have been on any meds in the outpatient setting thus I am reluctant to start any here in the hospital #chronic pain 2/2 knee OA: outpatient f/u. cont current pain regimen #EtOHism: sw to see. dispo: PT says SNF, CM working on this Subjective 24 Hr Interval Summary Free Text/Dictation pain control moderate but declined additional non narcotic options Exam/Review of Systems Vital Signs Vitals Vital Signs Date Time Temp Pulse Resp B/P Pulse Ox O2 Delivery O2 Flow Rate FiO2 07/11/17 14:53 98.4 100 19 119/85 94 Intake and Output 07/10/17 07/10/17 07/11/17 15:00 23:00 07:00 Intake Total 1350 ml 1080 ml Output Total 500 ml Balance 850 ml 1080 ml Exam nad no mrg lungs clear abd soft no edema Results Result Diagram: 07/09/17 0454 07/09/17 0454 Medications Medications Current Medications Ondansetron HCl (Zofran Inj) 4 mg Q6H PRN IV NAUSEA AND/OR VOMITING Last administered on 07/11/17 10:18; Admin Dose 4 MG; Start 07/05/17 at 01:30 Acetaminophen (Tylenol Tab) 650 mg Q6H PRN PO PAIN LEVEL 1-3 OR FEVER; Start 07/05/17 at 01:30 Dabigatran (PRADaxa) 150 mg BID PO Last administered on 07/11/17 08:42; Admin Dose 150 MG; Start 07/05/17 at 09:00 Betamethasone/ Clotrimazole (Lotrisone Cr) 1 applic BID TOP Last administered on 07/11/17 08:44; Admin Dose 1 APPLIC; Start 07/05/17 at 21:00 Ibuprofen (Motrin) 600 mg Q6 PO Last administered on 07/11/17 11:45; Admin Dose 600 MG; Start 07/05/17 at 18:00 Silver Sulfadiazine (Thermazene 1% 25 Gm) 1 applic BID TOP Last administered on 07/11/17 08:44; Admin Dose 1 APPLIC; Start 07/06/17 at 22:00 Miscellaneous Information Patients own medicat... BID@10,16 XX ; Start at 10:00 Diphenhydramine HCl (Benadryl) 25 mg Q6H PRN PO ITCHING Last administered on 23:29; Admin Dose 25 MG; Start 07/07/17 at 15:30 Diphenhydramine/ Zinc Oxide (Benadryl 1% Cr) 1 applic Q6 PRN TOP ITCHING Last administered on 07/09/17 08:23; Admin Dose 1 APPLIC; Start 07/08/17 at 03:00 Terbinafine HCl (Lamisil) 250 mg BID PO Last administered on 07/11/17 08:42; Admin Dose 250 MG; Start 07/08/17 at 13:00; Stop 07/15/17 at 12:59 Ammonium Lactate (Lac-Hydrin 12% Lotion) 1 applic BID TOP Last administered on 07/11/17 08:44; Admin Dose 1 APPLIC; Start 07/08/17 at 13:00 Lorazepam (Ativan) 1 mg Q8 PRN PO anxiety; Start 07/09/17 at 14:00 Trimethoprim/ Sulfamethoxazole (Bactrim (Ds)) 1 tab BID PO Last administered on 07/11/17 08:42; Admin Dose 1 TAB; Start 07/10/17 at 21:00 Acetaminophen/ Hydrocodone Bitart ([place] (5/325)) 2 tab Q4H PRN PO pain Last administered on 07/11/17 08:52; Admin Dose 2 TAB; Start 07/10/17 at 16:00 VONDA FUENTES MD Jul 11, 2017 15:30
--- NOTE | 2017-07-11 15:51 | DS ---
Date/Time of Note Date/Time of Note DATE: 07/11/17 TIME: 15:42 Discharge Summary Admission/Discharge Info Admit Date/Time Jul 05, 2017 at 13:15 Discharge Date/Time Discharge Diagnosis LE cellulitis 2/2 chronic venous stasis from chronic bl DVTs, chronic knee pain 2/2 OA Patient Condition: Stable Consults ID Procedures 12. blood cultures ng 08/18 12. bl LE dopplers FINDINGS: Right: Common femoral vein: Age indeterminate thrombus is present Femoral vein: Age indeterminate thrombus is present throughout Popliteal vein: Patent. Calf veins: Not visualized by the machining associate. A popliteal cyst measuring 1.4 x 3.0 x 4.7 cm. Left: Common femoral vein: Chronic-appearing thrombus is present. Femoral vein: Chronic-appearing thrombus is present proximally. Popliteal vein: Chronic-appearing thrombus is present. Calf veins: Not visualized by the machining associate. No soft tissue abnormalities are identified. IMPRESSION: Bilateral lower extremity deep venous thrombus. 07.05 attempted IVC filter placement IMPRESSION: 1. An inferior vena cava filter is present in the patient prior to the procedure been performed. 2. The existing IVC filter is tilted with the superior tip towards the right renal vein. 3. Thrombosis of the inferior vena cava inferior to the existing IVC filter. 4. There is no thrombus superior to the existing inferior vena cava filter. Therefore a new inferior vena cava filter was not placed. Hx of Present Illness This is a 67-year-old male with history of bilateral DVT, chronic bilateral lower extremity cellulitis who presented to the ER complaining of worsening of his cellulitis as well as pain on both of his legs. He initially went to [facility] but left AMA and he presented here. He said he was diagnosed with bilateral lower extremity DVT 3 weeks ago. His home medications include Pradaxa. He told me that he has been taking Lovenox for his DVT but corrected himself saying that he was only getting Lovenox at the hospital when he was initially diagnosed but now he said he has been taking "his pills" regularly. Patient appears to be homeless. He said he has been living with friends, but he does not want go back to live with them because they are meth users. Patient also complains of generalized weakness. He has also been drinking regularly. He denied tremors. Hospital Course 67 yo M with bipolar d/o, chronic venous stasis, chronic LE DVTs here for LE cellulitis 2/2 chronic venous stasis. Pt seen by ID who assisted with antimicrobial management. Pt seen by PT which advised SNF for help with walking. For his chronic bl DVTs, pt continued on home pradaxa. Pain controlled with increased dose of home norco. Of note, pt previously on TID norco as per CURES database. For his bipolar disorder, pt advised to f/u with his psychiatrist. I called his pharmacy and per the outer diameter technician, many of the rx's called in for him end up on "hold" as pt never picks them up. Copy of dc summary faxed to PCP at time of discharge Home Meds Active Scripts Ibuprofen* (Motrin*) 600 Mg Tab, 600 MG PO Q6, #30 TAB Prov:ZACHARY KIM 07/04/17 Reported Medications Clotrimazole-Betamethasone Diprop (Clotrimazole-Betamethasone Diprop) 15 Gm Cream.gm., 1 APPLIC TOP BID, TUB 07/04/17 Dabigatran Etexilate Mesylate* (Pradaxa*) 150 Mg Capsule, 150 MG PO BID, CAP 07/04/17 Discontinued Reported Medications Albuterol Sulfate* (Ventolin HFA*) 18 Gm Hfa.aer.ad, 2 PUFF INHALATION Q4H, #1 INHALER 11/30/16 Latanoprost (Latanoprost) 2.5 Ml Drops, 1 DROP BOTH EYES QHS, #1 BOTTLE 11/30/16 Ibuprofen* (Ibuprofen*) 800 Mg Tablet, 800 MG PO Q8 Y for PAIN, TAB 11/30/16 [place] Carbonate* ([place]*) 300 Mg Cap, 900 MG PO QHS, CAP 11/30/16 Pantoprazole* (Pantoprazole*) 40 Mg Tablet.dr, 40 MG PO AC BREAKFAST, TAB 11/30/16 Terazosin Hcl* (Terazosin Hcl*) 2 Mg Capsule, 2 MG PO HS, CAP 11/30/16 Famotidine* (Famotidine*) 20 Mg Tablet, 20 MG PO BID, #60 TAB 11/30/16 Naltrexone Hcl (Trexan) 50 Mg Tab, 50 MG PO DAILY, TAB 11/30/16 Gabapentin* (Gabapentin*) 400 Mg Capsule, 400 MG PO TID, #90 CAP 11/30/16 Follow-up Plan PCP within 7 days Orthopedic surgery for knee replacement Primary Care Provider PCP Luiz Azevedo [facility] [address] [place], [place] [phone] Fax Number Time spent on discharge: > 30 minutes VONDA FUENTES MD Jul 11, 2017 15:51
--- NOTE | 2017-07-11 16:03 | PDOCDIS ---
Discharge Instructions DIAGNOSIS Discharge Diagnosis LE cellulitis 2/2 chronic venous stasis from chronic bl DVTs, chronic knee pain 2/2 OA CONDITION Patient Condition: Stable FOLLOW UP/APPOINTMENTS Follow-up Plan Take all of your medications as prescribed. Be sure to drink plenty of water when taking antibiotics. It is VERY IMPORTANT that you take your blood thinner as directed for the chronic blood clots in your legs. Also if at any time while you are still on the blood thinner you bump your head or notice any rectal bleeding or any other bleeding that does not stop you need to go to the nearest emergency room immediately to make sure you are not experiencing life threatening bleeding Follow up with your regular doctor within [address] Luiz Armstrong [address] [place] [address] Phone Number Follow up with your orthopedic surgeon Dr Osullivan for your knees VONDA FUENTES MD Jul 11, 2017 16:03
[2017-07-11] MEDS ORDERED: ACET-2047 PO (16:20)
[2017-07-11 19:50] VITALS: BP 119/85; PULSE 66
[2017-07-11] MEDS ORDERED: ACETAMINOPHEN 325 MG TAB PO PRN ×2 (20:00)
== END 2017-07-11 19:54 | DRG 602 ==
LOC: E/R 03:57 → MS3 17:43 → OBSVTOIN 07-05 13:15 → PP2 07-06 20:49
PROVIDERS: ADMIT Internal Medicine; ATTEND Internal Medicine
PROC: B519YZZ Fluoroscopy of Inferior Vena Cava using Other Contrast (ICD-10-PCS; principal; 2017-07-05 13:00)
DX: L03.116 Cellulitis of left lower limb (principal); I82.220 Acute embolism and thrombosis of inferior vena cava; I82.513 Chronic embolism and thrombosis of femoral vein, bilateral; F31.89 Other bipolar disorder; I82.532 Chronic embolism and thrombosis of left popliteal vein; L03.115 Cellulitis of right lower limb; Z59.0 Homelessness; D64.9 Anemia, unspecified; F10.10 Alcohol abuse, uncomplicated; M17.0 Bilateral primary osteoarthritis of knee; Z95.828 Presence of other vascular implants and grafts; Z72.0 Tobacco use; Z91.19 Patient's noncompliance with other medical treatment and regimen; I87.8 Other specified disorders of veins
CPT/HCPCS: 36010; 37191; 75825; 80048; 80053; 80202; 82270; 82728; 83735; 84100; 85025; 85610; 85730; 87040; 87081; 90686; 93970; 96374; 97110; 97116; 97162; 97530; C1880; G0378; J0692; J1644; J2060; J2250; J2270; J2405; J3370; J3411; J7030; J7050; J7070; Q9967